=== PATIENT | female | born 1940 | race American Indian/Alaskan Native ===

== ENCOUNTER 2016-05-25 20:16 | Emergency (ER) | payer MEDICARE, MEDICAID ==
[2016-05-25] MEDS ORDERED: Aspirin 81 MG Tab.Chew PO ONE (20:19)
--- NOTE | 2016-05-25 20:25 | EDM.PDOC ---
ED HISTORY OF PRESENT ILLNESS - General Stated Complaint: SOB CHEST PAIN Time Seen by Provider: 05/25/16 20:18 Source of Information: Reports: Patient History Limitations: Reports: No limitations - History of Present Illness INITIAL COMMENTS - FREE TEXT/NARRATIVE: This 75 yo female patient reports to the ED with left sided chest pain. The patient reports her pain started about 1730 or 1800 this evening. The patient reports she took an 81 mg aspirin with no relief. The patient states that she is not too sure if it was something she ate or heart related. The patient has CHF, a-fib, COPD and chronic knee pain. 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 ) - Related Data Allergies/ADRs: Allergies Allergy/AdvReac Type Severity Reaction Status Date / Time red dye Allergy Mild Stomach Verified 05/25/16 20:31 Upset enalapril maleate Allergy Unknown Cannot Verified 05/25/16 20:31 [From Vasotec] Remember enalaprilat dihydrate Allergy Unknown Cannot Verified 05/25/16 20:31 [From Vasotec] Remember Penicillins Allergy Unknown Cannot Verified 05/25/16 20:31 Remember amlodipine Allergy Cannot Verified 05/25/16 20:31 Remember amoxicillin trihydrate Allergy Cannot Verified 05/25/16 20:31 [From Augmentin] Remember cephalexin [Cephalexin] Allergy Cannot Verified 05/25/16 20:31 Remember erythromycin base Allergy Cannot Verified 05/25/16 20:31 [Erythromycin Base] Remember influenza virus vaccine, Allergy Cannot Verified 05/25/16 20:31 specific Remember [Influenza Virus Vacc,Specific] losartan [Losartan] Allergy Cannot Verified 05/25/16 20:31 Remember potassium clavulanate Allergy Cannot Verified 05/25/16 20:31 [From Augmentin] Remember Home Meds: Home Meds Calcium Citrate - Vit D Caplet 1 tab PO DAILY 02/07/14 [History] Carboxymethylcellulose 2 drop EYEBOTH QID PRN 03/28/13 [History] Omeprazole 1 cap PO DAILY 03/28/13 [History] Ferrous Gluconate 324 mg PO BID 07/08/13 [History] PARoxetine [Paxil] 10 mg PO DAILY 07/08/13 [History] oxyCODONE HCl/Acetaminophen [Percocet 5-325 mg Tablet] 1 tab PO TID 07/08/13 [ History] Furosemide [Lasix] 40 mg PO DAILY #30 tablet 07/16/13 [Rx] Magnesium Oxide 400 mg PO DAILY 09/10/14 [History] Metolazone 2.5 mg PO ASDIRECTED 09/10/14 [History] Aspirin [Low Dose Aspirin EC] 81 mg PO DAILY 11/04/14 [History] Potassium Chloride 40 meq PO TID 11/04/14 [History] Past Medical History Other HEENT History: wears glasses Other Musculoskeletal History: arthritis in lower back, knees, ankles and heels , left shoulder Other Psychiatric History: help balance hormones after hysterectomy Other Dermatologic History: pediculosis capitis - Past Surgical History Other GI Surgeries/Procedures: 1984 cholecystectomy Other Female Surgeries/Procedures: 2012 hysterectomy Other Oncologic Surgeries/Procedures: hysterectomy Social & Family History - Tobacco Use Smoking Status *Q: Never Smoker Second Hand Smoke Exposure: Yes - Alcohol Use Days Per Week of Alcohol Use: 0 - Recreational Drug Use Recreational Drug Use: No - Living Situation & Occupation Living situation: Reports: extended care facility Occupation: disabled ED ROS GENERAL - Review of Systems Review Of Systems: ROS reveals no pertinent complaints other than HPI. ED EXAM, GENERAL - Physical Exam Exam: See Below Exam Limited By: No limitations General Appearance: alert, WD/WN, anxious, mild distress Eye Exam: bilateral eye: EOMI, normal inspection, PERRL Ears: normal external exam, normal canal, hearing grossly normal, normal TMs Nose: normal inspection, normal mucosa, no blood Throat/Mouth: Normal inspection, Normal lips, Normal teeth, Normal gums, Normal oropharynx, Normal voice, No airway compromise Head: atraumatic, normocephalic Neck: normal inspection, supple, non-tender, full range of motion Respiratory/Chest: no respiratory distress, lungs clear, normal breath sounds, no accessory muscle use, chest non-tender Cardiovascular: normal peripheral pulses, no edema, no gallop, no JVD, no murmur , no rub, irregularly irregular GI/Abdominal: normal bowel sounds, soft, non tender, no organomegaly, no distention, no abnormal bruit, no mass (Female) Exam: Deferred Rectal (Female) Exam: Deferred Back Exam: normal inspection, full range of motion, NT Extremities: normal inspection, normal range of motion, non-tender, normal capillary refill, no pedal edema Neurological: alert, oriented, CN II-XII intact, normal cognition, normal gait, normal reflexes, no motor/sensory deficits Psychiatric: normal affect, normal mood Skin Exam: Warm, Dry, Intact, Normal color, No rash Lymphatic: no adenopathy Course - Vital Signs Last Recorded V/S: Last Vital Signs Temp 36.4 C 05/25/16 20:26 Pulse 74 05/25/16 20:26 Resp 20 05/25/16 20:26 BP 152/81 H 05/25/16 20:26 Pulse Ox 99 05/25/16 20:26 - Orders/Labs/Meds Orders: Active Orders 24 hr Category Date Time Status EKG Documentation Completion [RC] URGENT Care 05/25/16 20:18 Active Labs: Laboratory Tests 05/25/16 05/25/16 Range/Units 20:25 20:25 WBC 5.7 (5.0-10.0) 10^3/uL RBC 4.92 (4.2-5.4) 10^6/uL Hgb 14.2 (12.0-16.0) g/dL Hct 44.7 (37.0-47.0) % MCV 90.9 (80-100) fL MCH 28.9 (27.0-34.0) pg MCHC 31.8 L (33.0-35.0) g/dL Plt Count 147 L (150-450) 10^3/uL Neut % (Auto) 58.6 (42.2-75.2) % Lymph % (Auto) 23.7 (20.5-50.1) % [place] % (Auto) 12.7 H (2-8) % Eos % (Auto) 4.6 H (1.0-3.0) % Baso % (Auto) 0.4 (0.0-1.0) % Sodium 138 (135-145) mmol/L Potassium 3.9 (3.6-5.0) mmol/L Chloride 98 L (101-111) mmol/L Carbon Dioxide 33.0 H (21.0-31.0) mmol/L Anion Gap 10.9 BUN 18 (7-18) mg/dL Creatinine 0.8 (0.6-1.3) mg/dL Est Cr Clr Drug Dosing 51.81 mL/min Estimated GFR (MDRD) > 60 BUN/Creatinine Ratio 22.50 Glucose 90 (74-105) mg/dL Calcium 9.0 (8.4-10.2) mg/dl Total Bilirubin 0.4 (0.2-1.0) mg/dL AST 21 (10-42) IU/L ALT 16 (10-60) IU/L Alkaline Phosphatase 82 (42-121) IU/L Troponin I < 0.02 (0.00-0.02) ng/ml B-Natriuretic Peptide 127 H (0-100) pg/ml Total Protein 7.5 (6.7-8.2) g/dl Albumin 3.5 (3.2-5.5) g/dl Globulin 4.0 Albumin/Globulin Ratio 0.88 Meds: Medications Discontinued Medications Generic Name Dose Route Start Last Admin Trade Name Freq PRN Reason Stop Dose Admin Aspirin 324 mg 05/25/16 20:19 05/25/16 20:29 Aspirin PO 05/25/16 20:20 324 mg ONETIME ONE Administration - Re-Assessments/Exams Free Text/Narrative Re-Assessment/Exam: 05/25/16 20:44 The patient reports she was feeling better after a short time in the ED. The patient reports she burped which relieved her pain. Departure - Departure Time of Disposition: 21:17 Disposition: Home, Self-Care 01 Condition: fair Clinical Impression: Non-cardiac chest pain Instructions: Nonspecific Chest Pain, [id number] Care Plan Goals: The patient and family were advised of the examination, lab, EKG and x-ray results during the visit. The patient was given Aspirin while in the ED. If the patient has any additional symptoms or concerns, the patient should follow-up with her primary care facility or return to the emergency department. - My Orders Last 24 Hours: My Active Orders 05/25/16 20:18 EKG Documentation Completion [RC] URGENT - Assessment/Plan Last 24 Hours: My Active Orders 05/25/16 20:18 EKG Documentation Completion [RC] URGENT
[2016-05-25 20:29] VITALS: BP 152/81
[2016-05-25 20:51] LABS: CHLORIDE,CL 98 mmol/L (101-111); SODIUM,NA 138 mmol/L (135-145)
--- NOTE | 2016-05-26 11:49 | EKG ---
05/25/2016 - JOAQUIM BOTELLO - TIME OF EK hours. I reviewed the EKG and agree with the machine's reading. [facility] /[id number]
== END 2016-05-25 21:34 | disposition home or self-care (01) ==
LOC: DL.ED 20:16
DX: R07.89 Other chest pain (principal); Z79.899 Other long term (current) drug therapy; Z90.710 Acquired absence of both cervix and uterus; Z90.49 Acquired absence of other specified parts of digestive tract; Z88.0 Allergy status to penicillin; Z88.1 Allergy status to other antibiotic agents; Z88.8 Allergy status to other drugs, medicaments and biological substances; Z91.041 Radiographic dye allergy status
CPT/HCPCS: 36415; 71010; 80053; 83880; 84484; 85025; 93005; 93010; 99285; A9270; 99283

== ENCOUNTER 2016-10-12 19:01 | Emergency (ER) | payer MEDICARE, MEDICAID ==
[2016-10-12 19:25] VITALS: BP 131/70
--- NOTE | 2016-10-12 19:25 | EDM.PDOC ---
ED HPI GENERAL MEDICAL PROBLEM - General Chief Complaint: Respiratory Problem Stated Complaint: NOSE, TROUBLE BREATHING [id number] Time Seen by Provider: 10/12/16 19:23 Source of Information: Reports: Patient History Limitations: Reports: No Limitations - History of Present Illness INITIAL COMMENTS - FREE TEXT/NARRATIVE: 3 days h/o sob and nose bleed on off. states use home O2 and right nostril is blocked and bleed on off. none now. denies CP. Knee Pain Score (Numeric/FACES): 5 - Related Data Allergies Allergy/AdvReac Type Severity Reaction Status Date / Time red dye Allergy Mild Stomach Verified 10/12/16 19:16 Upset enalapril maleate Allergy Unknown Cannot Verified 10/12/16 19:16 [From Vasotec] Remember enalaprilat dihydrate Allergy Unknown Cannot Verified 10/12/16 19:16 [From Vasotec] Remember Penicillins Allergy Unknown Cannot Verified 10/12/16 19:16 Remember amlodipine Allergy Cannot Verified 10/12/16 19:16 Remember amoxicillin trihydrate Allergy Cannot Verified 10/12/16 19:16 [From Augmentin] Remember cephalexin [Cephalexin] Allergy Cannot Verified 10/12/16 19:16 Remember erythromycin base Allergy Cannot Verified 10/12/16 19:16 [Erythromycin Base] Remember influenza virus vaccine, Allergy Cannot Verified 10/12/16 19:16 specific Remember [Influenza Virus Vacc,Specific] losartan [Losartan] Allergy Nausea Verified 10/12/16 19:16 potassium clavulanate Allergy Cannot Verified 10/12/16 19:16 [From Augmentin] Remember Home Meds: Home Meds Calcium Citrate - Vit D Caplet 1 tab PO DAILY 03/28/13 [History] Carboxymethylcellulose 2 drop EYEBOTH QID PRN 03/28/13 [History] Omeprazole 1 cap PO DAILY 03/28/13 [History] Ferrous Gluconate 324 mg PO BID 07/08/13 [History] PARoxetine [Paxil] 10 mg PO DAILY 07/08/13 [History] oxyCODONE HCl/Acetaminophen [Percocet 5-325 mg Tablet] 1 tab PO TID 07/08/13 [ History] Furosemide [Lasix] 40 mg PO DAILY #30 tablet 07/16/13 [Rx] Magnesium Oxide 400 mg PO DAILY 09/10/14 [History] Metolazone 2.5 mg PO ASDIRECTED 09/10/14 [History] Aspirin [Low Dose Aspirin EC] 81 mg PO DAILY 11/04/14 [History] Potassium Chloride 40 meq PO TID 11/04/14 [History] Past Medical History Other HEENT History: wears glasses Cardiovascular History: Reports: Heart Failure, Hypertension Other Musculoskeletal History: arthritis in lower back, knees, ankles and heels , left shoulder Other Psychiatric History: help balance hormones after hysterectomy Other Dermatologic History: pediculosis capitis - Past Surgical History Other GI Surgeries/Procedures: 1984 cholecystectomy Other Female Surgeries/Procedures: 2012 hysterectomy Other Oncologic Surgeries/Procedures: hysterectomy Social & Family History - Tobacco Use Smoking Status *Q: Never Smoker Second Hand Smoke Exposure: Yes - Caffeine Use Caffeine Use: Reports: Coffee, Soda, Tea - Alcohol Use Days Per Week of Alcohol Use: 0 - Recreational Drug Use Recreational Drug Use: No - Living Situation & Occupation Living situation: Reports: Extended Care Facility Occupation: Disabled ED ROS GENERAL - Review of Systems Review Of Systems: ROS reveals no pertinent complaints other than HPI. ED EXAM, GENERAL - Physical Exam Exam: See Below Exam Limited By: No Limitations General Appearance: Alert, WD/WN, Anxious, Other (disraught) Ears: Hearing Grossly Normal Nose: No Blood, Other (right turbiate swollen) Throat/Mouth: Normal Voice, No Airway Compromise Head: Atraumatic Neck: Non-Tender, Full Range of Motion Respiratory/Chest: No Respiratory Distress, No Accessory Muscle Use, Decreased Breath Sounds, Rhonchi, Wheezing Cardiovascular: Regular Rate, Rhythm GI/Abdominal: Soft, Non-Tender Neurological: Alert, Oriented, Normal Cognition, No Motor/Sensory Deficits Psychiatric: Flat Affect Skin Exam: Warm, Dry, Normal Color Lymphatic: No Adenopathy Course - Vital Signs Last Recorded V/S: Last Vital Signs Temp 36.5 C 10/12/16 19:10 Pulse 74 10/12/16 19:10 Resp 22 H 10/12/16 19:10 BP 131/70 10/12/16 19:10 Pulse Ox 94 L 10/12/16 19:10 - Orders/Labs/Meds Labs: Laboratory Tests 10/12/16 10/12/16 10/12/16 Range/Units 19:30 19:30 19:30 WBC 6.8 (5.0-10.0) 10^3/uL RBC 4.89 (4.2-5.4) 10^6/uL Hgb 13.8 (12.0-16.0) g/dL Hct 44.2 (37.0-47.0) % MCV 90.4 (80-100) fL MCH 28.2 (27.0-34.0) pg MCHC 31.2 L (33.0-35.0) g/dL Plt Count 149 L (150-450) 10^3/uL Neut % (Auto) 67.1 (42.2-75.2) % Lymph % (Auto) 20.6 (20.5-50.1) % [place] % (Auto) 9.4 H (2-8) % Eos % (Auto) 2.6 (1.0-3.0) % Baso % (Auto) 0.3 (0.0-1.0) % PT 9.6 (9.0-12.0) SEC INR 1.0 (0.9-1.2) APTT 25.3 (22.0-34.0) SEC Sodium 142 (135-145) mmol/L Potassium 3.4 L (3.6-5.0) mmol/L Chloride 100 L (101-111) mmol/L Carbon Dioxide 33.0 H (21.0-31.0) mmol/L Anion Gap 12.4 BUN 17 (7-18) mg/dL Creatinine 0.9 (0.6-1.3) mg/dL Est Cr Clr Drug Dosing 47.36 mL/min Estimated GFR (MDRD) > 60 BUN/Creatinine Ratio 18.88 Glucose 104 (74-105) mg/dL Calcium 8.7 (8.4-10.2) mg/dl Total Bilirubin 0.5 (0.2-1.0) mg/dL AST 18 (10-42) IU/L ALT 13 (10-60) IU/L Alkaline Phosphatase 67 (42-121) IU/L Troponin I < 0.02 (0.00-0.02) ng/ml B-Natriuretic Peptide 111 H (0-100) pg/ml Total Protein 7.6 (6.7-8.2) g/dl Albumin 3.3 (3.2-5.5) g/dl Globulin 4.3 Albumin/Globulin Ratio 0.77 Meds: Medications Discontinued Medications Generic Name Dose Route Start Last Admin Trade Name Alana PRN Reason Stop Dose Admin Levofloxacin 250 mg 10/12/16 21:10 Levaquin PO 10/12/16 21:11 ONETIME ONE Prednisone 10 mg 10/12/16 21:10 Prednisone PO 10/12/16 21:11 ONETIME ONE - Re-Assessments/Exams Free Text/Narrative Re-Assessment/Exam: 10/12/16 21:12 results discussed with pt who is feeling ok presently. Departure - Departure Time of Disposition: 21:12 Disposition: Home, Self-Care 01 Condition: Good Clinical Impression: Sinusitis nasal Qualifiers: Sinusitis location: pansinusitis Chronicity: acute Recurrence: not specified as recurrent Qualified Code(s): J01.40 - Acute pansinusitis, unspecified - Discharge Information Instructions: Sinusitis, Adult, Tygl-ad-Tpts Forms: ED Department Discharge Additional Instructions: 1) rest 2) follow up with clinic or recheck if there is any change or concern rx given; medrol dospak levaquine 250mg daily x 5 days
[2016-10-12 19:56] LABS: CHLORIDE,CL 100 mmol/L (101-111); SODIUM,NA 142 mmol/L (135-145)
[2016-10-12] MEDS ORDERED: predniSONE 10 MG Tab PO ONE (21:10)
[2016-10-12] MEDS ORDERED: Levofloxacin 250 MG Tab PO ONE (21:10)
== END 2016-10-12 21:26 | disposition home or self-care (01) ==
LOC: DL.ED 19:01
DX: J01.40 Acute pansinusitis, unspecified (principal); I11.0 Hypertensive heart disease with heart failure; I50.9 Heart failure, unspecified; M19.90 Unspecified osteoarthritis, unspecified site; Z90.710 Acquired absence of both cervix and uterus; Z90.49 Acquired absence of other specified parts of digestive tract; Z79.82 Long term (current) use of aspirin; Z79.899 Other long term (current) drug therapy; Z88.0 Allergy status to penicillin; Z88.1 Allergy status to other antibiotic agents; Z88.8 Allergy status to other drugs, medicaments and biological substances; Z91.040 Latex allergy status
CPT/HCPCS: 36415; 71010; 80053; 83880; 84484; 85025; 85610; 85730; 99285; A9270; 99284

== ENCOUNTER 2017-02-11 13:31 | Emergency (ER) | payer MEDICARE, MEDICAID ==
[2017-02-11 13:46] VITALS: BP 139/62
[2017-02-11] MEDS ORDERED: Tetracaine HCl/PF 0.5% 4 ML Bottle EYELF ONE (13:47)
--- NOTE | 2017-02-11 13:47 | EDM.PDOC ---
ED HPI GENERAL MEDICAL PROBLEM - General Chief Complaint: Eye Problems Stated Complaint: [id number] RED EYE SCRATCHY Time Seen by Provider: 02/11/17 13:46 Source of Information: Reports: Patient, RN, RN Notes Reviewed History Limitations: Reports: No Limitations - History of Present Illness INITIAL COMMENTS - FREE TEXT/NARRATIVE: Arrives from home by POV with c/o that she scratched her left eye last night while making household preparations for [place]. She believes she either scratched the eye with a newspaper, or tinsel from the [place] tree. Denies visual changes or discharge. 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 Left Eye Pain Score (Numeric/FACES): 1 - Related Data Allergies Allergy/AdvReac Type Severity Reaction Status Date / Time red dye Allergy Mild Stomach Verified 02/11/17 13:42 Upset enalapril maleate Allergy Unknown Cannot Verified 02/11/17 13:42 [From Vasotec] Remember enalaprilat dihydrate Allergy Unknown Cannot Verified 02/11/17 13:42 [From Vasotec] Remember Penicillins Allergy Unknown Cannot Verified 02/11/17 13:42 Remember amlodipine Allergy Cannot Verified 02/11/17 13:42 Remember amoxicillin trihydrate Allergy Cannot Verified 02/11/17 13:42 [From Augmentin] Remember cephalexin [Cephalexin] Allergy Cannot Verified 02/11/17 13:42 Remember erythromycin base Allergy Cannot Verified 02/11/17 13:42 [Erythromycin Base] Remember influenza virus vaccine, Allergy Cannot Verified 02/11/17 13:42 specific Remember [Influenza Virus Vacc,Specific] losartan [Losartan] Allergy Nausea Verified 02/11/17 13:42 potassium clavulanate Allergy Cannot Verified 02/11/17 13:42 [From Augmentin] Remember Home Meds: Home Meds Calcium Citrate - Vit D Caplet 1 tab PO DAILY 03/28/13 [History] Carboxymethylcellulose 2 drop EYEBOTH QID PRN 03/28/13 [History] Omeprazole 1 cap PO DAILY 03/28/13 [History] Ferrous Gluconate 324 mg PO BID 07/08/13 [History] PARoxetine [Paxil] 10 mg PO DAILY 07/08/13 [History] oxyCODONE HCl/Acetaminophen [Percocet 5-325 mg Tablet] 1 tab PO TID 07/08/13 [ History] Furosemide [Lasix] 40 mg PO DAILY #30 tablet 07/16/13 [Rx] Magnesium Oxide 400 mg PO DAILY 09/10/14 [History] Metolazone 2.5 mg PO ASDIRECTED 09/10/14 [History] Aspirin [Low Dose Aspirin EC] 81 mg PO DAILY 11/04/14 [History] Potassium Chloride 40 meq PO TID 11/04/14 [History] Past Medical History Other HEENT History: wears glasses Cardiovascular History: Reports: Heart Failure, Hypertension Respiratory History: Reports: Other (See Below) Other Respiratory History: oxygen dependent Gastrointestinal History: Reports: GERD Genitourinary History: Reports: Urinary Incontinence 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: 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 Uterine Bleeding Musculoskeletal History: Reports: Arthritis, Back Pain, Chronic, Other (See Below) Other Musculoskeletal History: arthritis in lower back, knees, ankles and heels , left shoulder Other Psychiatric History: help balance hormones after hysterectomy Hematologic History: Reports: Anemia Oncologic (Cancer) History: Reports: Uterine Dermatologic History: Reports: Other (See Below) Other Dermatologic History: pediculosis capitis - Infectious Disease History Infectious Disease History: Reports: Chicken Pox, Mumps - Past Surgical History Other GI Surgeries/Procedures: 1984 cholecystectomy Other Female Surgeries/Procedures: 2012 hysterectomy Other Oncologic Surgeries/Procedures: hysterectomy Social & Family History - Family History Family Medical History: Noncontributory - Tobacco Use Smoking Status *Q: Never Smoker Second Hand Smoke Exposure: Yes - Caffeine Use Caffeine Use: Reports: Coffee, Soda, Tea - Alcohol Use Days Per Week of Alcohol Use: 0 - Recreational Drug Use Recreational Drug Use: No - Living Situation & Occupation Living situation: Reports: Extended Care Facility Occupation: Disabled ED ROS GENERAL - Review of Systems Review Of Systems: ROS reveals no pertinent complaints other than HPI. ED EXAM GENERAL W FULL EYE - Physical Exam Exam: See Below Exam Limited By: No Limitations General Appearance: Alert, No Apparent Distress, Obese Eye Exam: Right Eye: Normal Inspection, Left Eye: Corneal Abrasion, Bilateral Eye: EOMI, PERRL Eyelids: Left: Lid Everted for Exam, Bilateral: Normal Appearance Conjunctiva & Sclera: Right: Normal Appearance, Left: Injected, Subconjuctival Hemorrhage Cornea Exam: Left: Corneal Abrasion, Examined with Flourescein Extraocular Movements: Bilateral: Intact Pupils: Normal Accommodation Pupillary Size: Bilateral: 3 mm Pupillary Reaction: Bilateral: Brisk Head: Atraumatic, Normocephalic Respiratory/Chest: No Respiratory Distress Neurological: Alert, Oriented, CN II-XII Intact, No Motor/Sensory Deficits Psychiatric: Normal Affect, Normal Mood Skin Exam: Warm, Dry, Intact, Normal Color, No Rash ED EYE w/ Add Procedure - Eye Procedure Alcaine Drops Administered: Yes Eye FB Removal: no Removal w/ Cotton Swab, no Removal w/ Needle, no Other Antibiotic Oinment/Drps Admin: Left Eye Progress: No FB seen. Course - Vital Signs Last Recorded V/S: Last Vital Signs Temp 36.3 C 02/11/17 13:42 Pulse 62 02/11/17 13:42 Resp 20 02/11/17 13:42 BP 139/62 02/11/17 13:42 Pulse Ox 98 02/11/17 13:42 - Orders/Labs/Meds Meds: Medications Discontinued Medications Generic Name Dose Route Start Last Admin Trade Name Freq PRN Reason Stop Dose Admin Fluorescein Sodium 1 mg 02/11/17 13:52 02/11/17 13:56 Ful-Marilu EYELF 02/11/17 13:53 1 mg ONETIME ONE Administration Gentamicin Sulfate 1 gm 02/11/17 13:52 02/11/17 13:56 Gentak 0.3% Ophth Oint EYELF 02/11/17 13:53 1 gm ONETIME ONE Administration Tetracaine HCl 1 ml 02/11/17 13:47 02/11/17 13:56 Tetracaine 0.5% Steri-Unit Dana EYELF 02/11/17 13:48 1 drop ONETIME ONE Administration Departure - Departure Time of Disposition: 14:12 Disposition: Home, Self-Care 01 Condition: Good Clinical Impression: Subconjunctival hemorrhage of left eye Corneal abrasion Qualifiers: Encounter type: initial encounter Laterality: left Qualified Code(s): S05.02XA - Injury of conjunctiva and corneal abrasion without foreign body, left eye, initial encounter - Discharge Information Instructions: Corneal Abrasion, [id number], Subconjunctival Hemorrhage Forms: ED Department Discharge Additional Instructions: Gentamicin Ophthalmic Ointment: Place a small amount of ointment in the left eye four times a day for five days. Wear pressure patch on left eye as needed for comfort. Follow up with your eye clinic on Sunday, .
[2017-02-11] MEDS ORDERED: Fluorescein 1 MG Ophth Strip EYELF ONE (13:52)
== END 2017-02-11 14:20 | disposition home or self-care (01) ==
LOC: DL.ED 13:31
DX: S05.02XA Injury of conjunctiva and corneal abrasion without foreign body, left eye, initial encounter (principal); H11.32 Conjunctival hemorrhage, left eye; I11.0 Hypertensive heart disease with heart failure; I50.9 Heart failure, unspecified; Z91.041 Radiographic dye allergy status; Z88.8 Allergy status to other drugs, medicaments and biological substances; Z88.0 Allergy status to penicillin; Z79.899 Other long term (current) drug therapy; X58.XXXA Exposure to other specified factors, initial encounter
CPT/HCPCS: 99283; A9270

== ENCOUNTER 2017-05-31 11:45 | Emergency (ER) | payer MEDICARE, MEDICAID ==
[2017-05-31 12:02] VITALS: BP 121/97
[2017-05-31] MEDS ORDERED: Oxymetazoline 0.05% Nasal Spray 15 ML Bottle NAS ONE (12:02)
[2017-05-31] MEDS ORDERED: Lidocaine 1% with EPINEPHrine 1:100,000 30 ML MDV INJECT ONE (12:02)
--- NOTE | 2017-05-31 12:17 | EDM.PDOC ---
ED HPI GENERAL MEDICAL PROBLEM - General Chief Complaint: ENT Problem Stated Complaint: IN BY AMBULANCE Time Seen by Provider: 05/31/17 12:11 Source of Information: Reports: Patient, EMS, RN History Limitations: Reports: No Limitations - History of Present Illness INITIAL COMMENTS - FREE TEXT/NARRATIVE: Eliza presents to ED by EMS, report of right nostril bleeding since 2100 yesterday. Patient felt constipated and "it was hard to go, but I went". Afterward, patient felt dripping from her nose. Eliza states she had large clots from her nose and had to change the nasal packing twenty times. Patient spent the night sleeping upright in her arm-chair. This is the first time she has had a nose bleed "in years". Patient takes 81mg aspirin daily, no other anti-coagulants. Patient is on 3L nasal cannula oxygen therapy at home. Onset: Sudden Onset Date: 05/30/17 Onset Time: 21:00 Duration: Hour(s):, Constant Location: Reports: Face Severity: Moderate Improves with: Reports: Other (Nasal packing) Worsens with: Reports: None Associated Symptoms: Reports: No Other Symptoms. 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 Hip Pain Score (Numeric/FACES): 7 - Related Data Allergies Allergy/AdvReac Type Severity Reaction Status Date / Time red dye Allergy Mild Stomach Verified 05/31/17 12:04 Upset enalapril maleate Allergy Unknown Cannot Verified 05/31/17 12:04 [From Vasotec] Remember enalaprilat dihydrate Allergy Unknown Cannot Verified 05/31/17 12:04 [From Vasotec] Remember Penicillins Allergy Unknown Cannot Verified 05/31/17 12:04 Remember amlodipine Allergy Cannot Verified 05/31/17 12:04 Remember amoxicillin trihydrate Allergy Cannot Verified 05/31/17 12:04 [From Augmentin] Remember cephalexin [Cephalexin] Allergy Cannot Verified 05/31/17 12:04 Remember erythromycin base Allergy Cannot Verified 05/31/17 12:04 [Erythromycin Base] Remember influenza virus vaccine, Allergy Cannot Verified 05/31/17 12:04 specific Remember [Influenza Virus Vacc,Specific] losartan [Losartan] Allergy Nausea Verified 05/31/17 12:04 potassium clavulanate Allergy Cannot Verified 02/11/17 13:42 [From Augmentin] Remember Home Meds: Home Meds Calcium Citrate - Vit D Caplet 1 tab PO DAILY 03/28/13 [History] Carboxymethylcellulose 2 drop EYEBOTH QID PRN 03/28/13 [History] Omeprazole 1 cap PO DAILY 03/28/13 [History] Ferrous Gluconate 324 mg PO BID 07/08/13 [History] PARoxetine [Paxil] 10 mg PO DAILY 07/08/13 [History] oxyCODONE HCl/Acetaminophen [Percocet 5-325 mg Tablet] 1 tab PO TID 07/08/13 [ History] Furosemide [Lasix] 40 mg PO DAILY #30 tablet 07/16/13 [Rx] Magnesium Oxide 400 mg PO DAILY 09/10/14 [History] Metolazone 2.5 mg PO ASDIRECTED 09/10/14 [History] Aspirin [Low Dose Aspirin EC] 81 mg PO DAILY 11/04/14 [History] Potassium Chloride 40 meq PO TID 11/04/14 [History] Acetaminophen [Tylenol] 325 mg PO Q4H PRN 05/31/17 [History] Metoprolol Succinate 50 mg PO DAILY 05/31/17 [History] Nitroglycerin [Nitrostat] 0.4 mg SL ASDIRECTED PRN 05/31/17 [History] Past Medical History HEENT History: Reports: Other (See Below) Other HEENT History: wears glasses Cardiovascular History: Reports: Heart Failure, Hypertension Respiratory History: Reports: Other (See Below) Other Respiratory History: oxygen dependent Gastrointestinal History: Reports: GERD Genitourinary History: Reports: Urinary Incontinence 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: 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 Uterine Bleeding Musculoskeletal History: Reports: Arthritis, Back Pain, Chronic, Other (See Below) Other Musculoskeletal History: arthritis in lower back, knees, ankles and heels , left shoulder Other Psychiatric History: help balance hormones after hysterectomy Hematologic History: Reports: Anemia Oncologic (Cancer) History: Reports: Uterine Dermatologic History: Reports: Other (See Below) Other Dermatologic History: pediculosis capitis - Infectious Disease History Infectious Disease History: Reports: Chicken Pox, Mumps - Past Surgical History Other GI Surgeries/Procedures: 1984 cholecystectomy Other Female Surgeries/Procedures: 2012 hysterectomy Other Oncologic Surgeries/Procedures: hysterectomy Social & Family History - Family History Family Medical History: Noncontributory - Tobacco Use Smoking Status *Q: Never Smoker Second Hand Smoke Exposure: Yes - Caffeine Use Caffeine Use: Reports: Coffee, Soda, Tea - Alcohol Use Days Per Week of Alcohol Use: 0 - Recreational Drug Use Recreational Drug Use: No - Living Situation & Occupation Living situation: Reports: Extended Care Facility Occupation: Disabled ED ROS ENT - Review of Systems Review Of Systems: See Below Constitutional: Reports: No Symptoms HEENT: Reports: Nosebleed. Denies: Sinus Problem, Vertigo Respiratory: Reports: No Symptoms Cardiovascular: Reports: Lightheadedness Endocrine: Reports: No Symptoms GI/Abdominal: Reports: No Symptoms : Reports: No Symptoms Musculoskeletal: Reports: No Symptoms Skin: Reports: No Symptoms Neurological: Reports: No Symptoms ED EXAM, ENT - Physical Exam Exam: See Below Exam Limited By: No Limitations General Appearance: Alert, No Apparent Distress Eye Exam: Bilateral Eye: Normal Inspection, PERRL Ears: Normal Canal Nose: Active Bleeding (No excoriations or open sores in right nostril, oozing of bright red blood. Clots on nasal packing ), Dried Blood (Dried blood in left nare, no open sores or excoriations ). No: Nasal Deformity, Septal Deformity, Septal Hematoma, Septal Perforation Mouth/Throat: Normal Inspection, Normal Oropharynx. No: Dry Mucous Membrane Head: Atraumatic, Normocephalic Neck: Normal Inspection, Supple Respiratory/Chest: No Respiratory Distress, Lungs Clear, Normal Breath Sounds. No: Rhonchi Cardiovascular: Normal Peripheral Pulses, Regular Rate, Rhythm GI/Abdominal: Normal Bowel Sounds, Soft, Non-Tender Extremities: Normal Capillary Refill Neurological: Alert, Oriented, CN II-XII Intact, Normal Cognition Psychiatric: Normal Affect, Normal Mood Skin: Warm, Dry, Normal Color, No Rash ED ENT PROCEDURES - Epistaxis Procedure Indication: Epistaxis Recent anticoagulants/antiplatlets: No Uncontrolled HTN: No Recent septal/nasal surgery: No Site of bleeding: Right Nare, Anterior Clearing of clots: Patient Blew Nose Anterior Packing: Plain Gauze Strip (Upon arrival ), Inflatable Nasal Tampon Local anesthesia - Lidocaine (Xylocaine): 1% with EPI (Epi with Afrin spray, compression held and patient leaning forward ) Course - Vital Signs Last Recorded V/S: Last Vital Signs Temp 36.4 C 05/31/17 11:52 Pulse 78 05/31/17 11:52 Resp 16 05/31/17 11:52 BP 121/97 H 05/31/17 11:52 Pulse Ox 99 05/31/17 11:52 - Orders/Labs/Meds Orders: Active Orders 24 hr Category Date Time Status Ready for Discharge [RC] PER UNIT ROUTINE Care 05/31/17 14:03 Ordered Labs: Laboratory Tests 05/31/17 Range/Units 12:12 WBC 6.0 (5.0-10.0) 10^3/uL RBC 4.74 (4.2-5.4) 10^6/uL Hgb 13.5 (12.0-16.0) g/dL Hct 42.9 (37.0-47.0) % MCV 90.5 (80-100) fL MCH 28.5 (27.0-34.0) pg MCHC 31.5 L (33.0-35.0) g/dL Plt Count 136 L (150-450) 10^3/uL Meds: Medications Discontinued Medications Generic Name Dose Route Start Last Admin Trade Name Alana PRN Reason Stop Dose Admin Lidocaine/Epinephrine 30 ml 05/31/17 12:02 05/31/17 12:35 Xylocaine 1% With Epinephrine 1:100,000 INJECT 05/31/17 12:03 30 ml ONETIME ONE Administration Oxymetazoline HCl 1 ml 05/31/17 12:02 05/31/17 12:35 Afrin Original 0.05% Nasal [place] JESICA 05/31/17 12:03 1 dose ONETIME ONE Administration - Re-Assessments/Exams Free Text/Narrative Re-Assessment/Exam: 05/31/17 13:26 Continued bleeding after Afrin/Epi spray and compression x2 Insertion of Inflatable tampon in right nostril. 05/31/17 13:58 Patient rinsed mouth, no bleeding in oropharynx. Departure - Departure Time of Disposition: 14:00 Disposition: Home, Self-Care 01 Condition: Good Clinical Impression: Epistaxis - Discharge Information Instructions: Nosebleed, Adult, [id number] Forms: ED Department Discharge Additional Instructions: See your Primary Care Provider TOMORROW to have the nasal tampon removed. Take Levaquin anti-biotic once a day for seven days.
== END 2017-05-31 14:38 | disposition home or self-care (01) ==
LOC: DL.ED 11:45
DX: R04.0 Epistaxis (principal); I10 Essential (primary) hypertension; Z91.041 Radiographic dye allergy status; Z88.8 Allergy status to other drugs, medicaments and biological substances; Z88.1 Allergy status to other antibiotic agents; Z88.0 Allergy status to penicillin; Z79.899 Other long term (current) drug therapy; Z77.22 Contact with and (suspected) exposure to environmental tobacco smoke (acute) (chronic)
CPT/HCPCS: 30901; 36415; 85027; 99283; 99284; A9270

== ENCOUNTER 2017-06-02 13:12 | Emergency (ER) | payer MEDICARE, MEDICAID ==
[2017-06-02 13:45] VITALS: BP 109/70
[2017-06-02] MEDS ORDERED: Oxymetazoline 0.05% Nasal Spray 15 ML Bottle NAS ONE (14:12)
--- NOTE | 2017-06-02 14:12 | EDM.PDOC ---
ED HPI GENERAL MEDICAL PROBLEM - General Chief Complaint: General Stated Complaint: [id number] Time Seen by Provider: 06/02/17 13:55 Source of Information: Reports: Patient History Limitations: Reports: No Limitations - History of Present Illness INITIAL COMMENTS - FREE TEXT/NARRATIVE: This 76 yo female patient reports to the ED to have a Rhino Rocket removed from her right nare. The patient reports she was seen in the ED 3 days ago with a bloody nose and had the packing placed into her nose. The patient went to the [facility] yesterday and finally saw the provider, but was advised that they would not take the rocket out due to them believing that there was additional bleeding in the area. Onset: Today Duration: Other Location: Reports: Face (right sided nose bleed) Quality: Reports: Other Severity: Moderate Improves with: Reports: None Worsens with: Reports: None Associated Symptoms: Reports: No Other Symptoms - Related Data Allergies Allergy/AdvReac Type Severity Reaction Status Date / Time red dye Allergy Mild Stomach Verified 06/02/17 13:40 Upset enalapril maleate Allergy Unknown Cannot Verified 06/02/17 13:40 [From Vasotec] Remember enalaprilat dihydrate Allergy Unknown Cannot Verified 06/02/17 13:40 [From Vasotec] Remember Penicillins Allergy Unknown Cannot Verified 06/02/17 13:40 Remember amlodipine Allergy Cannot Verified 06/02/17 13:40 Remember amoxicillin trihydrate Allergy Cannot Verified 06/02/17 13:40 [From Augmentin] Remember cephalexin [Cephalexin] Allergy Cannot Verified 06/02/17 13:40 Remember erythromycin base Allergy Cannot Verified 06/02/17 13:40 [Erythromycin Base] Remember influenza virus vaccine, Allergy Cannot Verified 06/02/17 13:40 specific Remember [Influenza Virus Vacc,Specific] losartan [Losartan] Allergy Nausea Verified 06/02/17 13:40 potassium clavulanate Allergy Cannot Verified 06/02/17 13:40 [From Augmentin] Remember Home Meds: Home Meds Calcium Citrate - Vit D Caplet 1 tab PO DAILY 03/28/13 [History] Carboxymethylcellulose 2 drop EYEBOTH QID PRN 03/28/13 [History] Omeprazole 1 cap PO DAILY 03/28/13 [History] Ferrous Gluconate 324 mg PO BID 05/20/14 [History] PARoxetine [Paxil] 10 mg PO DAILY 07/08/13 [History] oxyCODONE HCl/Acetaminophen [Percocet 5-325 mg Tablet] 1 tab PO TID 07/08/13 [ History] Furosemide [Lasix] 40 mg PO DAILY #30 tablet 07/16/13 [Rx] Magnesium Oxide 400 mg PO DAILY 09/10/14 [History] Metolazone 2.5 mg PO ASDIRECTED 09/10/14 [History] Aspirin [Low Dose Aspirin EC] 81 mg PO DAILY 11/04/14 [History] Potassium Chloride 40 meq PO TID 11/04/14 [History] Acetaminophen [Tylenol] 325 mg PO Q4H PRN 05/31/17 [History] Metoprolol Succinate 50 mg PO DAILY 05/31/17 [History] Nitroglycerin [Nitrostat] 0.4 mg SL ASDIRECTED PRN 05/31/17 [History] Past Medical History HEENT History: Reports: Other (See Below) Other HEENT History: wears glasses Cardiovascular History: Reports: Heart Failure, Hypertension Respiratory History: Reports: Other (See Below) Other Respiratory History: oxygen dependent Gastrointestinal History: Reports: GERD Genitourinary History: Reports: Urinary Incontinence 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: 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 Uterine Bleeding Musculoskeletal History: Reports: Arthritis, Back Pain, Chronic, Other (See Below) Other Musculoskeletal History: arthritis in lower back, knees, ankles and heels , left shoulder Neurological History: Reports: None Psychiatric History: Reports: None Other Psychiatric History: help balance hormones after hysterectomy Endocrine/Metabolic History: Reports: None Hematologic History: Reports: Anemia Immunologic History: Reports: None Oncologic (Cancer) History: Reports: Uterine Dermatologic History: Reports: Other (See Below) Other Dermatologic History: pediculosis capitis - Infectious Disease History Infectious Disease History: Reports: Chicken Pox, Mumps - Past Surgical History Other GI Surgeries/Procedures: 1984 cholecystectomy Other Female Surgeries/Procedures: 2012 hysterectomy Other Oncologic Surgeries/Procedures: hysterectomy Social & Family History - Family History Family Medical History: Noncontributory - Tobacco Use Smoking Status *Q: Never Smoker Second Hand Smoke Exposure: Yes - Caffeine Use Caffeine Use: Reports: Coffee, Soda, Tea - Alcohol Use Days Per Week of Alcohol Use: 0 - Recreational Drug Use Recreational Drug Use: No - Living Situation & Occupation Living situation: Reports: Extended Care Facility Occupation: Disabled ED ROS GENERAL - Review of Systems Review Of Systems: ROS reveals no pertinent complaints other than HPI. ED EXAM, GENERAL - Physical Exam Exam: See Below Exam Limited By: No Limitations General Appearance: Alert, WD/WN, Mild Distress, Obese Eye Exam: Bilateral Eye: EOMI, Normal Inspection, PERRL Ears: Normal External Exam, Normal Canal, Hearing Grossly Normal, Normal TMs Nose: Other (The patient had a Rhino Rocket in her. The device was removed after insection. ) Throat/Mouth: Normal Inspection, Normal Lips, Normal Teeth, Normal Gums, Normal Oropharynx, Normal Voice, No Airway Compromise Head: Atraumatic, Normocephalic Neck: Normal Inspection, Supple, Non-Tender, Full Range of Motion Respiratory/Chest: No Respiratory Distress, Lungs Clear, Normal Breath Sounds, No Accessory Muscle Use, Chest Non-Tender Cardiovascular: Normal Peripheral Pulses, Regular Rate, Rhythm, No Edema, No Gallop, No JVD, No Murmur, No Rub GI/Abdominal: Normal Bowel Sounds, Soft, Non-Tender, No Organomegaly, No Distention, No Abnormal Bruit, No Mass (Female) Exam: Deferred Rectal (Female) Exam: Deferred Back Exam: Normal Inspection, Full Range of Motion, NT Extremities: Normal Inspection, Normal Range of Motion, Non-Tender, Normal Capillary Refill, No Pedal Edema Neurological: Alert, Oriented, CN II-XII Intact, Normal Cognition, Normal Gait, Normal Reflexes, No Motor/Sensory Deficits Psychiatric: Normal Affect, Normal Mood Skin Exam: Warm, Dry, Intact, Normal Color, No Rash Lymphatic: No Adenopathy Course - Vital Signs Last Recorded V/S: Last Vital Signs Temp 36.7 C 06/02/17 13:42 Pulse 86 06/02/17 13:42 Resp 20 06/02/17 13:42 BP 109/70 06/02/17 13:42 Pulse Ox 92 L 06/02/17 13:42 - Orders/Labs/Meds Meds: Medications Discontinued Medications Generic Name Dose Route Start Last Admin Trade Name Freq PRN Reason Stop Dose Admin Oxymetazoline HCl 1 ml 06/02/17 14:12 06/02/17 14:26 Afrin Original 0.05% Nasal [place] JESICA 06/02/17 14:13 2 spray ONETIME ONE Administration - Re-Assessments/Exams Free Text/Narrative Re-Assessment/Exam: 06/02/17 14:15 After removal, the patient started to notice some additional bleeding. The patient reported more blood down the back of her nose and into her throat. Afrin was ordered. Free Text/Narrative Re-Assessment/Exam: 06/02/17 14:56 After the Afrin spray, the patient's nose bleed stopped. Departure - Departure Time of Disposition: 14:57 Disposition: Home, Self-Care 01 Condition: Fair Clinical Impression: Epistaxis, Encounter for removal of nasal packing - Discharge Information Instructions: Nosebleed, Adult, [id number] Forms: ED Department Discharge Care Plan Goals: The patient and family were advised of the examination results during the visit. The nasal packing was removed. The patient did have some bleeding after the removal of the nasal packing which was controlled with Afrin spray. If the patient has any additional symptoms or further concerns, the patient should follow-up with her primary care facility or return to the emergency department.
== END 2017-06-02 15:06 | disposition home or self-care (01) ==
LOC: DL.ED 13:12
DX: R04.0 Epistaxis (principal); I11.0 Hypertensive heart disease with heart failure; I50.9 Heart failure, unspecified; Z91.048 Other nonmedicinal substance allergy status; Z88.0 Allergy status to penicillin; Z88.8 Allergy status to other drugs, medicaments and biological substances; Z88.7 Allergy status to serum and vaccine; Z79.899 Other long term (current) drug therapy; Z79.82 Long term (current) use of aspirin
CPT/HCPCS: 99282; A9270

== ENCOUNTER 2017-08-21 18:46 | Emergency (ER) | payer MEDICARE, MEDICAID ==
[2017-08-21] MEDS ORDERED: Levofloxacin 500 MG Tab PO ONE ×2 (18:47→21:08)
[2017-08-21 18:56] VITALS: BP 137/77
[2017-08-21 20:11] LABS: ANION GAP 11.5; CHLORIDE,CL 94 mmol/L (101-111); SODIUM,NA 138 mmol/L (135-145)
--- NOTE | 2017-08-21 21:07 | EDM.PDOC ---
ED HPI GENERAL MEDICAL PROBLEM - General Chief Complaint: Respiratory Problem Stated Complaint: [id number] Time Seen by Provider: 08/21/17 20:17 Source of Information: Reports: Patient, RN, RN Notes Reviewed History Limitations: Reports: No Limitations - History of Present Illness INITIAL COMMENTS - FREE TEXT/NARRATIVE: Pt to Er with c/o not being able to breathe. Pt is on O2 at all times at home. Pt states it felt as though her nose was being pinched shut. She c/o upper abdominal/epigastric pains at times with decreased appetite. Patient denies chest pains, fever, chills, N/V/D. Patient states she feels she has a sinus infection. Onset: Gradual Bilateral Leg Pain Score (Numeric/FACES): 7 - Related Data Allergies Allergy/AdvReac Type Severity Reaction Status Date / Time red dye Allergy Mild Stomach Verified 08/21/17 19:02 Upset enalapril maleate Allergy Unknown Cannot Verified 08/21/17 19:02 [From Vasotec] Remember enalaprilat dihydrate Allergy Unknown Cannot Verified 08/21/17 19:02 [From Vasotec] Remember Penicillins Allergy Unknown Cannot Verified 08/21/17 19:02 Remember amlodipine Allergy Cannot Verified 08/21/17 19:02 Remember amoxicillin trihydrate Allergy Cannot Verified 08/21/17 19:02 [From Augmentin] Remember cephalexin [Cephalexin] Allergy Cannot Verified 08/21/17 19:02 Remember erythromycin base Allergy Cannot Verified 08/21/17 19:02 [Erythromycin Base] Remember influenza virus vaccine, Allergy Cannot Verified 08/21/17 19:02 specific Remember [Influenza Virus Vacc,Specific] losartan [Losartan] Allergy Nausea Verified 08/21/17 19:02 potassium clavulanate Allergy Cannot Verified 06/02/17 13:40 [From Augmentin] Remember Home Meds: Home Meds Calcium Citrate - Vit D Caplet 1 tab PO DAILY 03/28/13 [History] Carboxymethylcellulose 2 drop EYEBOTH QID PRN 03/28/13 [History] Omeprazole 1 cap PO DAILY 03/28/13 [History] Ferrous Gluconate 324 mg PO BID 07/08/13 [History] PARoxetine [Paxil] 10 mg PO DAILY 07/08/13 [History] oxyCODONE HCl/Acetaminophen [Percocet 5-325 mg Tablet] 1 tab PO TID 07/08/13 [ History] Furosemide [Lasix] 40 mg PO DAILY #30 tablet 07/16/13 [Rx] Magnesium Oxide 400 mg PO DAILY 09/10/14 [History] Metolazone 2.5 mg PO ASDIRECTED 09/10/14 [History] Aspirin [Low Dose Aspirin EC] 81 mg PO DAILY 11/04/14 [History] Potassium Chloride 40 meq PO TID 11/04/14 [History] Acetaminophen [Tylenol] 325 mg PO Q4H PRN 05/31/17 [History] Metoprolol Succinate 50 mg PO DAILY 05/31/17 [History] Nitroglycerin [Nitrostat] 0.4 mg SL ASDIRECTED PRN 05/31/17 [History] Past Medical History HEENT History: Reports: Other (See Below) Other HEENT History: wears glasses Cardiovascular History: Reports: Afib, Heart Failure, Hypertension Respiratory History: Reports: Other (See Below) Other Respiratory History: oxygen dependent Gastrointestinal History: Reports: GERD Genitourinary History: Reports: Urinary Incontinence 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: 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 Uterine Bleeding Musculoskeletal History: Reports: Arthritis, Back Pain, Chronic, Other (See Below) Other Musculoskeletal History: arthritis in lower back, knees, ankles and heels , left shoulder Neurological History: Reports: None Psychiatric History: Reports: None Other Psychiatric History: help balance hormones after hysterectomy Endocrine/Metabolic History: Reports: None Hematologic History: Reports: Anemia Immunologic History: Reports: None Oncologic (Cancer) History: Reports: Uterine Dermatologic History: Reports: Other (See Below) Other Dermatologic History: pediculosis capitis - Infectious Disease History Infectious Disease History: Reports: Chicken Pox, Mumps - Past Surgical History Other GI Surgeries/Procedures: 1984 cholecystectomy Other Female Surgeries/Procedures: 2012 hysterectomy Other Oncologic Surgeries/Procedures: hysterectomy Social & Family History - Family History Family Medical History: Noncontributory - Tobacco Use Smoking Status *Q: Never Smoker - Caffeine Use Caffeine Use: Reports: Coffee, Soda, Tea - Recreational Drug Use Recreational Drug Use: No - Living Situation & Occupation Living situation: Reports: Extended Care Facility Occupation: Disabled ED ROS GENERAL - Review of Systems Review Of Systems: ROS reveals no pertinent complaints other than HPI. ED EXAM, GENERAL - Physical Exam Exam: See Below Exam Limited By: No Limitations General Appearance: Alert, WD/WN, No Apparent Distress Eye Exam: Bilateral Eye: EOMI, Normal Inspection Ears: Normal External Exam, Hearing Grossly Normal Nose: Other (bilateral turbinate injection) Throat/Mouth: Normal Inspection, Normal Voice, No Airway Compromise Head: Atraumatic, Normocephalic Neck: Normal Inspection, Supple, Non-Tender, Full Range of Motion Respiratory/Chest: No Respiratory Distress, No Accessory Muscle Use, Chest Non- Tender, Decreased Breath Sounds Cardiovascular: Normal Peripheral Pulses, Irregularly Irregular Peripheral Pulses: 1+: Radial (L), Radial (R) GI/Abdominal: Normal Bowel Sounds, Soft, Tender (epigastric/RUQ) (Female) Exam: Deferred Rectal (Female) Exam: Deferred Back Exam: Normal Inspection, Full Range of Motion Extremities: Normal Inspection, Pedal Edema (+1-2), Limited Range of Motion ( arithritic joints) Neurological: Alert, Oriented, Normal Cognition, No Motor/Sensory Deficits Psychiatric: Normal Affect, Normal Mood Skin Exam: Warm, Dry, Intact, Normal Color, No Rash Lymphatic: No Adenopathy Course - Vital Signs Last Recorded V/S: Last Vital Signs Temp 98.6 F 08/21/17 18:50 Pulse 71 08/21/17 18:50 Resp 24 H 08/21/17 18:50 BP 137/77 08/21/17 18:50 Pulse Ox 97 08/21/17 18:50 - Orders/Labs/Meds Orders: Active Orders 24 hr Category Date Time Status EKG 12 Lead [EKG Documentation Completion] [RC] URGENT Care 08/21/17 19:08 Active UA W/MICROSCOPIC [URIN] Stat Lab 08/21/17 20:07 Ordered Labs: Laboratory Tests 08/21/17 08/21/17 08/21/17 Range/Units 19:06 19:06 19:06 WBC 6.6 (5.0-10.0) 10^3/uL RBC 4.88 (4.2-5.4) 10^6/uL Hgb 13.7 (12.0-16.0) g/dL Hct 44.0 (37.0-47.0) % MCV 90.2 (80-100) fL MCH 28.1 (27.0-34.0) pg MCHC 31.1 L (33.0-35.0) g/dL Plt Count 143 L (150-450) 10^3/uL Neut % (Auto) 64.0 (42.2-75.2) % Lymph % (Auto) 22.5 (20.5-50.1) % [place] % (Auto) 10.2 H (2-8) % Eos % (Auto) 3.0 (1.0-3.0) % Baso % (Auto) 0.3 (0.0-1.0) % Sodium 138 (135-145) mmol/L Potassium 3.5 L (3.6-5.0) mmol/L Chloride 94 L (101-111) mmol/L Carbon Dioxide 36.0 H (21.0-31.0) mmol/L Anion Gap 11.5 BUN 17 (7-18) mg/dL Creatinine 0.8 (0.6-1.3) mg/dL Est Cr Clr Drug Dosing 55.52 mL/min Estimated GFR (MDRD) > 60 BUN/Creatinine Ratio 21.25 Glucose 96 (74-105) mg/dL Calcium 9.0 (8.4-10.2) mg/dl Total Bilirubin 0.3 (0.2-1.0) mg/dL AST 19 (10-42) IU/L ALT 14 (10-60) IU/L Alkaline Phosphatase 70 (42-121) IU/L Troponin I < 0.02 (0.00-0.02) ng/ml B-Natriuretic Peptide 110 H (0-100) pg/ml Total Protein 7.8 (6.7-8.2) g/dl Albumin 3.6 (3.2-5.5) g/dl Globulin 4.2 Albumin/Globulin Ratio 0.86 Urine Color (YELLOW) Urine Appearance (CLEAR) Urine pH (5.0-9.0) Ur Specific [place] (1.005-1.030) Urine Protein (NEGATIVE) Urine Glucose (UA) (NEGATIVE) Urine Ketones (NEGATIVE) Urine Occult Blood (NEGATIVE) Urine Nitrite (NEGATIVE) Urine Bilirubin (NEGATIVE) Urine Urobilinogen (0.2-1.0) mg/dL Ur Leukocyte Esterase (NEGATIVE) Urine RBC /HPF Urine WBC (0-5/HPF) /HPF Ur Epithelial Cells /HPF Urine Bacteria (0-FEW/HPF) /HPF 08/21/17 Range/Units 20:07 WBC (5.0-10.0) 10^3/uL RBC (4.2-5.4) 10^6/uL Hgb (12.0-16.0) g/dL Hct (37.0-47.0) % MCV (80-100) fL MCH (27.0-34.0) pg MCHC (33.0-35.0) g/dL Plt Count (150-450) 10^3/uL Neut % (Auto) (42.2-75.2) % Lymph % (Auto) (20.5-50.1) % [place] % (Auto) (2-8) % Eos % (Auto) (1.0-3.0) % Baso % (Auto) (0.0-1.0) % Sodium (135-145) mmol/L Potassium (3.6-5.0) mmol/L Chloride (101-111) mmol/L Carbon Dioxide (21.0-31.0) mmol/L Anion Gap BUN (7-18) mg/dL Creatinine (0.6-1.3) mg/dL Est Cr Clr Drug Dosing mL/min Estimated GFR (MDRD) BUN/Creatinine Ratio Glucose (74-105) mg/dL Calcium (8.4-10.2) mg/dl Total Bilirubin (0.2-1.0) mg/dL AST (10-42) IU/L ALT (10-60) IU/L Alkaline Phosphatase (42-121) IU/L Troponin I (0.00-0.02) ng/ml B-Natriuretic Peptide (0-100) pg/ml Total Protein (6.7-8.2) g/dl Albumin (3.2-5.5) g/dl Globulin Albumin/Globulin Ratio Urine Color Yellow (YELLOW) Urine Appearance Slightly cloudy (CLEAR) Urine pH 7.0 (5.0-9.0) Ur Specific [place] 1.015 (1.005-1.030) Urine Protein Negative (NEGATIVE) Urine Glucose (UA) Negative (NEGATIVE) Urine Ketones Negative (NEGATIVE) Urine Occult Blood Negative (NEGATIVE) Urine Nitrite Negative (NEGATIVE) Urine Bilirubin Negative (NEGATIVE) Urine Urobilinogen 0.2 (0.2-1.0) mg/dL Ur Leukocyte Esterase Negative (NEGATIVE) Urine RBC 0-5 /HPF Urine WBC 0-5 (0-5/HPF) /HPF Ur Epithelial Cells Moderate H /HPF Urine Bacteria Occasional (0-FEW/HPF) /HPF Meds: Medications Discontinued Medications Generic Name Dose Route Start Last Admin Trade Name Alana PRN Reason Stop Dose Admin Levofloxacin 500 mg 08/21/17 21:08 08/21/17 21:26 Levaquin PO 08/21/17 21:09 500 mg ONETIME ONE Administration Levofloxacin Confirm 08/21/17 21:11 08/21/17 21:26 Levaquin Administered 08/21/17 21:12 Not Given Dose 500 mg .ROUTE .STK-MED ONE Departure - Departure Time of Disposition: 21:06 Disposition: Home, Self-Care 01 Condition: Fair Clinical Impression: Sinusitis Qualifiers: Sinusitis location: unspecified location Chronicity: acute Recurrence: not specified as recurrent Qualified Code(s): J01.90 - Acute sinusitis, unspecified - Discharge Information Instructions: Shortness of Breath, Adult, [id number], Sinusitis, Adult, Easy- to-Read, Sinus Rinse, [id number] Referrals: Torsten Villa MD [Primary Care Provider] - Forms: ED Department Discharge Additional Instructions: RX: Levaquin Follow up with your primary care facility - My Orders Last 24 Hours: My Active Orders 08/21/17 19:08 EKG 12 Lead [EKG Documentation Completion] [] URGENT 08/21/17 20:07 UA W/MICROSCOPIC [URIN] Stat - Assessment/Plan Last 24 Hours: My Active Orders 08/21/17 19:08 EKG 12 Lead [EKG Documentation Completion] [] URGENT 08/21/17 20:07 UA W/MICROSCOPIC [URIN] Stat
[2017-08-21] MEDS ORDERED: Levofloxacin 500 MG Tab ONE (21:11)
--- NOTE | 2017-08-22 11:38 | EKG ---
08/21/2017 - JOAQUIM BOTELLO - TIME: 1856 hours. FINDINGS: EKG shows atrial fibrillation with a controlled ventricular response. MOD /[id number]
== END 2017-08-21 21:35 | disposition home or self-care (01) ==
LOC: DL.ED 18:46
DX: J01.90 Acute sinusitis, unspecified (principal); I11.0 Hypertensive heart disease with heart failure; I50.9 Heart failure, unspecified; I48.91 Unspecified atrial fibrillation; K21.9 Gastro-esophageal reflux disease without esophagitis; Z79.82 Long term (current) use of aspirin; Z79.899 Other long term (current) drug therapy; Z88.1 Allergy status to other antibiotic agents; Z88.7 Allergy status to serum and vaccine; Z91.09 Other allergy status, other than to drugs and biological substances; Z88.0 Allergy status to penicillin
CPT/HCPCS: 36415; 80053; 81001; 83880; 84484; 85025; 93005; 93010; 99285; A9270; 99283

== ENCOUNTER 2018-03-06 14:16 | Emergency (ER) | payer MEDICARE, MEDICAID ==
[2018-03-06] MEDS ORDERED: Sodium Chloride 0.9% 10 ML Syringe FLUSH PRN (14:36)
[2018-03-06] MEDS ORDERED: GI Cocktail Oral Solution 30 ML PO ONE (14:36)
--- NOTE | 2018-03-06 14:38 | EDM.PDOC ---
ED HPI GENERAL MEDICAL PROBLEM - General Chief Complaint: Chest Pain Stated Complaint: AMBULANCE Time Seen by Provider: 03/06/18 14:25 Source of Information: Reports: Patient History Limitations: Reports: No Limitations - History of Present Illness INITIAL COMMENTS - FREE TEXT/NARRATIVE: Patient comes imaging Department today with complaints of shortness of breath and epigastric type chest pain. For the past 2 nights the patient has complained of a pain just below her xiphoid process. Pain does get worse with palpation. It is difficult for her to sleep at night because when she lays down she becomes quite short of breath. She's had no nausea no vomiting. No diaphoresis. The pain does not radiate anywhere else. She does have a history of a hernia in the epigastric region as well. She has had no nausea no vomiting. No bloating sensation or burping. No diarrhea normal bowel movements. No hematuria dysuria or urinary frequency. - Related Data Allergies Allergy/AdvReac Type Severity Reaction Status Date / Time red dye Allergy Mild Stomach Verified 08/21/17 19:02 Upset enalapril maleate Allergy Unknown Cannot Verified 08/21/17 19:02 [From Vasotec] Remember enalaprilat dihydrate Allergy Unknown Cannot Verified 08/21/17 19:02 [From Vasotec] Remember Penicillins Allergy Unknown Cannot Verified 08/21/17 19:02 Remember amlodipine Allergy Cannot Verified 08/21/17 19:02 Remember amoxicillin trihydrate Allergy Cannot Verified 08/21/17 19:02 [From Augmentin] Remember cephalexin [Cephalexin] Allergy Cannot Verified 08/21/17 19:02 Remember erythromycin base Allergy Cannot Verified 08/21/17 19:02 [Erythromycin Base] Remember influenza virus vaccine, Allergy Cannot Verified 08/21/17 19:02 specific Remember [Influenza Virus Vacc,Specific] losartan [Losartan] Allergy Nausea Verified 08/21/17 19:02 potassium clavulanate Allergy Cannot Verified 06/02/17 13:40 [From Augmentin] Remember Home Meds: Home Meds Calcium Citrate - Vit D Caplet 1 tab PO DAILY 03/28/13 [History] Carboxymethylcellulose 2 drop EYEBOTH QID PRN 03/28/13 [History] Omeprazole 1 cap PO DAILY 03/28/13 [History] Ferrous Gluconate 324 mg PO BID 07/08/13 [History] PARoxetine [Paxil] 10 mg PO DAILY 07/08/13 [History] oxyCODONE HCl/Acetaminophen [Percocet 5-325 mg Tablet] 1 tab PO TID 07/08/13 [ History] Furosemide [Lasix] 40 mg PO DAILY #30 tablet 07/16/13 [Rx] Magnesium Oxide 400 mg PO DAILY 09/10/14 [History] metOLazone [Metolazone] 2.5 mg PO ASDIRECTED 09/10/14 [History] Aspirin [Low Dose Aspirin EC] 81 mg PO DAILY 11/04/14 [History] Potassium Chloride 40 meq PO TID 11/04/14 [History] Acetaminophen [Tylenol] 325 mg PO Q4H PRN 05/31/17 [History] Metoprolol Succinate 50 mg PO DAILY 05/31/17 [History] Nitroglycerin [Nitrostat] 0.4 mg SL ASDIRECTED PRN 05/31/17 [History] Sucralfate [Carafate] 1 gm PO QID #120 tablet 03/06/18 [Rx] Past Medical History HEENT History: Reports: Other (See Below) Other HEENT History: wears glasses Cardiovascular History: Reports: Afib, Heart Failure, Hypertension Respiratory History: Reports: Other (See Below) Other Respiratory History: oxygen dependent Gastrointestinal History: Reports: GERD Genitourinary History: Reports: Urinary Incontinence 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: 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 Musculoskeletal History: Reports: Arthritis, Back Pain, Chronic, Other (See Below) Other Musculoskeletal History: arthritis in lower back, knees, ankles and heels , left shoulder Neurological History: Reports: None Psychiatric History: Reports: None Other Psychiatric History: help balance hormones after hysterectomy Endocrine/Metabolic History: Reports: None Hematologic History: Reports: Anemia Immunologic History: Reports: None Oncologic (Cancer) History: Reports: Uterine Dermatologic History: Reports: Other (See Below) Other Dermatologic History: pediculosis capitis - Infectious Disease History Infectious Disease History: Reports: Chicken Pox, Mumps - Past Surgical History Other GI Surgeries/Procedures: 1984 cholecystectomy Other Female Surgeries/Procedures: 2012 hysterectomy Other Oncologic Surgeries/Procedures: hysterectomy Social & Family History - Family History Family Medical History: Noncontributory - Caffeine Use Caffeine Use: Reports: Coffee, Soda, Tea - Living Situation & Occupation Living situation: Reports: Extended Care Facility Occupation: Disabled ED ROS GENERAL - Review of Systems Review Of Systems: ROS reveals no pertinent complaints other than HPI. ED EXAM, GENERAL - Physical Exam Exam: See Below Exam Limited By: No Limitations General Appearance: Alert, WD/WN, No Apparent Distress, Obese Neck: Normal Inspection, Supple Respiratory/Chest: No Respiratory Distress, Lungs Clear, Normal Breath Sounds, No Accessory Muscle Use, Chest Non-Tender Cardiovascular: Normal Peripheral Pulses, Regular Rate, Rhythm, No Edema, No Murmur, Irregularly Irregular (history of afib) Peripheral Pulses: 2+: Radial (L), Radial (R), Posterior Tibial (L), Posterior Tibial (R), Dorsalis Pedis (L), Dorsalis Pedis (R) GI/Abdominal: Normal Bowel Sounds, Soft, No Distention, No Abnormal Bruit, No Mass, Tender (to the very epigastric region. No guarding no rebound. No right upper quadrant oreft upper quadrant enderness.) Back Exam: Normal Inspection, Full Range of Motion Extremities: Normal Inspection, Normal Range of Motion, Non-Tender, Normal Capillary Refill, Pedal Edema (1+ bilateral itting edema primarily around the ankles.) Neurological: Alert, Oriented, Normal Cognition, No Motor/Sensory Deficits Psychiatric: Normal Affect, Normal Mood Skin Exam: Warm, Dry, Intact, Normal Color, No Rash EKG INTERPRETATION EKG Date: 03/06/18 Time: 14:24 Rhythm: A-Fib Rate (Beats/Min): 65 [place]: Normal P-Wave: Present QRS: Normal ST-T: Normal QT: Normal Comparison: No Change Course - Orders/Labs/Meds Labs: Laboratory Tests 03/06/18 03/06/18 03/06/18 Range/Units 14:20 14:20 14:20 WBC 6.6 (5.0-10.0) 10^3/uL RBC 5.02 (4.2-5.4) 10^6/uL Hgb 14.2 (12.0-16.0) g/dL Hct 44.9 (37.0-47.0) % MCV 89.4 (80-100) fL MCH 28.3 (27.0-34.0) pg MCHC 31.6 L (33.0-35.0) g/dL Plt Count 145 L (150-450) 10^3/uL Neut % (Auto) 67.3 (42.2-75.2) % Lymph % (Auto) 19.7 L (20.5-50.1) % [place] % (Auto) 9.3 H (2-8) % Eos % (Auto) 3.4 H (1.0-3.0) % Baso % (Auto) 0.3 (0.0-1.0) % Sodium 137 (135-145) mmol/L Potassium 3.4 L (3.6-5.0) mmol/L Chloride 93 L (101-111) mmol/L Carbon Dioxide 32.0 H (21.0-31.0) mmol/L Anion Gap 15.4 BUN 17 (7-18) mg/dL Creatinine 0.8 (0.6-1.3) mg/dL Est Cr Clr Drug Dosing TNP Estimated GFR (MDRD) > 60 BUN/Creatinine Ratio 21.25 Glucose 100 (74-105) mg/dL Calcium 9.0 (8.4-10.2) mg/dl Total Bilirubin 0.6 (0.2-1.0) mg/dL AST 19 (10-42) IU/L ALT < 5 L (10-60) IU/L Alkaline Phosphatase 69 (42-121) IU/L Troponin I < 0.02 (0.00-0.02) ng/ml B-Natriuretic Peptide 68 (0-100) pg/ml Total Protein 7.7 (6.7-8.2) g/dl Albumin 3.5 (3.2-5.5) g/dl Globulin 4.2 Albumin/Globulin Ratio 0.83 Lipase 39 (22-51) U/L Meds: Medications Discontinued Medications Generic Name Dose Route Start Last Admin Trade Name Freq PRN Reason Stop Dose Admin Al Hydroxide/Mg Hydroxide 30 ml 03/06/18 14:36 03/06/18 15:12 Gi Cocktail PO 03/06/18 14:37 30 ml ONETIME ONE Administration Sodium Chloride 10 ml 03/06/18 14:36 03/06/18 15:13 Saline Flush FLUSH 10 ml ASDIRECTED PRN Administration Keep Vein Open - Radiology Interpretation Free Text/Narrative:: cxr no acute findings - Re-Assessments/Exams Free Text/Narrative Re-Assessment/Exam: 03/06/18 GI cocktail with complete resolution of the patient's symptoms. Laboratory evaluation to include troponin and BNP chest x-ray is rather unremarkable. This is a patient in chronic atrial fibrillation who her primary care decided not to be placed on anticoagulation therapy. she feels much better and she would like to leave. Discharge plan as below was explained to the patient she was comfortable with this plan and her questions were answered. Departure - Departure Time of Disposition: 15:54 Disposition: Home, Self-Care 01 Clinical Impression: GERD (gastroesophageal reflux disease) Qualifiers: Esophagitis presence: without esophagitis Qualified Code(s): K21.9 - Gastro- esophageal reflux disease without esophagitis Prescriptions: Sucralfate [Carafate] 1 gm PO QID #120 tablet Instructions: Gastroesophageal Reflux Disease, Adult, [id number] Referrals: Torsten Villa MD [Family Provider] - Forms: ED Department Discharge Additional Instructions: Increase omeprazole to twice daily for 2 weeks then back to once a day. Carafate 1 tablet before meals and at bedtime. RX given. Return to the ED if new or worsening symptoms Follow up with primary care provider in the next 4-6 days if not improving sooner if worse. - Assessment/Plan Assessment:: GERD epigastric pain Plan: Increase omeprazole to twice daily for 2 weeks then back to once a day. Carafate 1 tablet before meals and at bedtime. RX given. Return to the ED if new or worsening symptoms Follow up with primary care provider in the next 4-6 days if not improving sooner if worse.
[2018-03-06 14:54] LABS: ANION GAP 15.4; CHLORIDE,CL 93 mmol/L (101-111); SODIUM,NA 137 mmol/L (135-145)
--- NOTE | 2018-03-06 15:28 | CR ---
Clinical history: 77-year-old female with chest pain and shortness of breath. Interpretation: Senescent ectasia dorsal aorta and chronic borderline cardiomegaly. No cephalization of vascular flow, signs of alveolar edema or dependent new pleural fluid accumulation when compared to 25 May and 12 October 2016 exam. Note: Subtle asymmetric right suprahilar nodular density with suggestion of ipsilateral hilar lymphadenopathy. Recommend considering CT scan on an elective basis, particularly, if patient has been a "smoker". No other lung mass lesion and no focal lobar pneumonia. No atelectasis/collapse. No pneumothorax. Conclusion: No heart failure or lobar pneumonia. (See comments regarding right suprahilar density above)
== END 2018-03-06 16:25 | disposition home or self-care (01) ==
LOC: DL.ED 14:16
DX: K21.9 Gastro-esophageal reflux disease without esophagitis (principal); I11.0 Hypertensive heart disease with heart failure; I50.9 Heart failure, unspecified; Z88.8 Allergy status to other drugs, medicaments and biological substances; Z88.0 Allergy status to penicillin; Z91.041 Radiographic dye allergy status; Z88.1 Allergy status to other antibiotic agents; Z79.82 Long term (current) use of aspirin; Z79.899 Other long term (current) drug therapy
CPT/HCPCS: 36415; 71046; 80053; 83690; 83880; 84484; 85025; 93005; 99285; A9270

== ENCOUNTER 2019-04-08 19:02 | Emergency (ER) | payer MEDICARE, MEDICAID ==
[2019-04-08] MEDS: Sodium Chloride 0.9% 10 ML Syringe FLUSH PRN (20:25)
--- NOTE | 2019-04-08 20:25 | EDM.PDOC ---
ED HPI GENERAL MEDICAL PROBLEM - General Chief Complaint: Respiratory Problem Stated Complaint: CANT BREATH Time Seen by Provider: 04/08/19 20:25 Source of Information: Reports: Patient, Family, RN, RN Notes Reviewed - History of Present Illness INITIAL COMMENTS - FREE TEXT/NARRATIVE: Patient presents to ER with complaint of increased cough, shortness of breath, headache, chest pain with cough. Patient states she has been around children, grandchildren who have been ill recently. Patient states she does not use nebulizers at home. Patient states she is on 3 L of oxygen at all times at home. Patient states only production with cough is phlegm. Chest Pain Score (Numeric/FACES): 9 - Related Data Allergies Allergy/AdvReac Type Severity Reaction Status Date / Time red dye Allergy Mild Stomach Verified 04/08/19 21:03 Upset enalapril maleate Allergy Unknown Cannot Verified 04/08/19 21:03 [From Vasotec] Remember enalaprilat dihydrate Allergy Unknown Cannot Verified 04/08/19 21:03 [From Vasotec] Remember Penicillins Allergy Unknown Cannot Verified 04/08/19 21:03 Remember amlodipine Allergy Cannot Verified 04/08/19 21:03 Remember amoxicillin trihydrate Allergy Cannot Verified 04/08/19 21:03 [From Augmentin] Remember cephalexin [Cephalexin] Allergy Cannot Verified 04/08/19 21:03 Remember erythromycin base Allergy Cannot Verified 04/08/19 21:03 [Erythromycin Base] Remember influenza virus vaccine, Allergy Cannot Verified 04/08/19 21:03 specific Remember [Influenza Virus Vacc,Specific] losartan [Losartan] Allergy Nausea Verified 04/08/19 21:03 potassium clavulanate Allergy Cannot Verified 09/04/18 12:27 [From Augmentin] Remember Home Meds: Home Meds Calcium Citrate - Vit D Caplet 1 tab PO DAILY 03/28/13 [History] Carboxymethylcellulose 2 drop EYEBOTH QID PRN 03/28/13 [History] Omeprazole 20 mg PO DAILY 03/28/13 [History] Ferrous Gluconate 324 mg PO BID 07/08/13 [History] PARoxetine [Paxil] 10 mg PO DAILY 07/08/13 [History] oxyCODONE HCl/Acetaminophen [Percocet 5-325 mg Tablet] 1 tab PO TID PRN [History] Furosemide [Lasix] 40 mg PO DAILY #30 tablet 07/16/13 [Rx] metOLazone [Metolazone] 2.5 mg PO ASDIRECTED 09/10/14 [History] Aspirin [Low Dose Aspirin EC] 81 mg PO DAILY 11/04/14 [History] Potassium Chloride 40 meq PO TID 11/04/14 [History] Acetaminophen [Tylenol] 325 mg PO Q4H PRN 05/31/17 [History] Metoprolol Succinate 50 mg PO DAILY 05/31/17 [History] Nitroglycerin [Nitrostat] 0.4 mg SL ASDIRECTED PRN 05/31/17 [History] Past Medical History HEENT History: Reports: Other (See Below) Other HEENT History: wears glasses Cardiovascular History: Reports: Afib, Heart Failure, Hypertension Respiratory History: Reports: Other (See Below) Other Respiratory History: oxygen dependent Gastrointestinal History: Reports: GERD Genitourinary History: Reports: Urinary Incontinence SPOUT TENDER History: Reports: 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 Uterine Bleeding Musculoskeletal History: Reports: Arthritis, Back Pain, Chronic, Other (See Below) Other Musculoskeletal History: arthritis in lower back, knees, ankles and heels , left shoulder Neurological History: Reports: None Psychiatric History: Reports: None Other Psychiatric History: help balance hormones after hysterectomy Endocrine/Metabolic History: Reports: None Hematologic History: Reports: Anemia Immunologic History: Reports: None Oncologic (Cancer) History: Reports: Uterine Dermatologic History: Reports: Other (See Below) Other Dermatologic History: pediculosis capitis - Infectious Disease History Infectious Disease History: Reports: Chicken Pox, Mumps - Past Surgical History Other GI Surgeries/Procedures: 1984 cholecystectomy Other Female Surgeries/Procedures: 2012 hysterectomy Other Oncologic Surgeries/Procedures: hysterectomy Social & Family History - Family History Family Medical History: Noncontributory - Caffeine Use Caffeine Use: Reports: Coffee, Tea - Living Situation & Occupation Living situation: Reports: Extended Care Facility Occupation: Disabled ED ROS GENERAL - Review of Systems Review Of Systems: Comprehensive ROS is negative, except as noted in HPI. ED EXAM, GENERAL - Physical Exam Exam: See Below Exam Limited By: No Limitations General Appearance: Alert, WD/WN, Moderate Distress Eye Exam: Bilateral Eye: EOMI, Normal Inspection Ears: Normal External Exam, Hearing Grossly Normal Nose: Normal Inspection Throat/Mouth: Normal Inspection, Normal Voice, No Airway Compromise Head: Atraumatic, Normocephalic Neck: Normal Inspection, Supple, Non-Tender, Full Range of Motion Respiratory/Chest: Decreased Breath Sounds, Crackles (throat), Rhonchi ( throughout) Cardiovascular: Normal Peripheral Pulses, Regular Rate, Rhythm, No Edema, No Gallop, No JVD, No Murmur, No Rub Peripheral Pulses: 2+: Radial (L), Radial (R) GI/Abdominal: Normal Bowel Sounds, Soft, Non-Tender (Female) Exam: Deferred Rectal (Female) Exam: Deferred Back Exam: Normal Inspection, Full Range of Motion, NT Extremities: Normal Inspection, Normal Range of Motion, Non-Tender, Normal Capillary Refill, No Pedal Edema Neurological: Alert, Oriented, Normal Cognition Psychiatric: Normal Affect, Normal Mood Skin Exam: Warm, Dry, Intact, Normal Color, No Rash Lymphatic: No Adenopathy Course - Vital Signs Last Recorded V/S: Last Vital Signs Temp 99.2 F 04/08/19 20:00 Pulse 85 04/08/19 20:00 Resp 21 H 04/08/19 20:00 BP 145/82 H 04/08/19 20:00 Pulse Ox 97 04/08/19 20:00 - Orders/Labs/Meds Orders: Active Orders 24 hr Category Date Time Status Peripheral IV Care [RC] . DIRECTED Care 04/08/19 20:12 Active RT Aerosol Therapy [RC] ASDIRECTED Care 04/08/19 20:37 Active Chest 1V Frontal [CR] Stat Exams 04/08/19 20:11 Taken B-TYPE NATRIURETIC PEPTIDE,BNP [CHEM] Stat Lab 04/08/19 20:21 Received CULTURE BLOOD [BC] Stat Lab 04/08/19 20:21 Received CULTURE BLOOD [BC] Stat Lab 04/08/19 20:45 Received CULTURE URINE [RM] Stat Lab 04/08/19 20:12 Received Sodium Chloride 0.9% [Saline Flush] Med 04/08/19 20:11 Active 10 ml FLUSH ASDIRECTED PRN Blood Culture x2 Reflex Set [OM.PC] Stat Oth 04/08/19 20:12 Ordered Peripheral IV Insertion Adult [OM.PC] Stat Oth 04/08/19 20:11 Ordered Medication Orders Sodium Chloride (Saline Flush) 10 ml FLUSH ASDIRECTED PRN PRN Reason: Keep Vein Open Last Admin: 04/08/19 20:25 Dose: 10 ml Labs: Laboratory Tests 04/08/19 04/08/19 04/08/19 Range/Units 20:12 20:21 20:21 WBC 8.4 (5.0-10.0) 10^3/uL RBC 5.01 (4.2-5.4) 10^6/uL Hgb 14.3 (12.0-16.0) g/dL Hct 45.3 (37.0-47.0) % MCV 90.4 (80-100) fL MCH 28.5 (27.0-34.0) pg MCHC 31.6 L (33.0-35.0) g/dL Plt Count 121 L (150-450) 10^3/uL Neut % (Auto) 83.0 H (42.2-75.2) % Lymph % (Auto) 6.2 L (20.5-50.1) % [place] % (Auto) 8.5 H (2-8) % Eos % (Auto) 2.2 (1.0-3.0) % Baso % (Auto) 0.1 (0.0-1.0) % Sodium 138 (135-145) mmol/L Potassium 3.4 L (3.6-5.0) mmol/L Chloride 93 L (101-111) mmol/L Carbon Dioxide 37.0 H (21.0-31.0) mmol/L Anion Gap 11.4 BUN 17 (7-18) mg/dL Creatinine 0.7 (0.6-1.3) mg/dL Est Cr Clr Drug Dosing 61.52 mL/min Estimated GFR (MDRD) > 60 BUN/Creatinine Ratio 24.28 Glucose 98 (74-105) mg/dL Lactic Acid (0.5-2.0) mmol/L Calcium 9.0 (8.4-10.2) mg/dl Total Bilirubin 0.9 (0.2-1.0) mg/dL AST 20 (10-42) IU/L ALT 15 (10-60) IU/L Alkaline Phosphatase 71 (42-121) IU/L Total Protein 8.0 (6.7-8.2) g/dl Albumin 3.8 (3.2-5.5) g/dl Globulin 4.2 Albumin/Globulin Ratio 0.90 Urine Color Yellow (YELLOW) Urine Appearance Clear (CLEAR) Urine pH 8.5 (5.0-9.0) Ur Specific [place] 1.020 (1.005-1.030) Urine Protein Negative (NEGATIVE) Urine Glucose (UA) Negative (NEGATIVE) Urine Ketones Negative (NEGATIVE) Urine Occult Blood Negative (NEGATIVE) Urine Nitrite Negative (NEGATIVE) Urine Bilirubin Negative (NEGATIVE) Urine Urobilinogen 0.2 (0.2-1.0) mg/dL Ur Leukocyte Esterase Trace H (NEGATIVE) Urine RBC 0-5 /HPF Urine WBC 30-40 H (0-5/HPF) /HPF Ur Epithelial Cells Rare (NOT SEEN) /HPF Amorphous Sediment Few (NOT SEEN) /HPF Urine Bacteria Rare (0-FEW/HPF) /HPF Urine Mucus Not seen (NOT SEEN) /LPF 04/08/19 Range/Units 20:21 WBC (5.0-10.0) 10^3/uL RBC (4.2-5.4) 10^6/uL Hgb (12.0-16.0) g/dL Hct (37.0-47.0) % MCV (80-100) fL MCH (27.0-34.0) pg MCHC (33.0-35.0) g/dL Plt Count (150-450) 10^3/uL Neut % (Auto) (42.2-75.2) % Lymph % (Auto) (20.5-50.1) % [place] % (Auto) (2-8) % Eos % (Auto) (1.0-3.0) % Baso % (Auto) (0.0-1.0) % Sodium (135-145) mmol/L Potassium (3.6-5.0) mmol/L Chloride (101-111) mmol/L Carbon Dioxide (21.0-31.0) mmol/L Anion Gap BUN (7-18) mg/dL Creatinine (0.6-1.3) mg/dL Est Cr Clr Drug Dosing mL/min Estimated GFR (MDRD) BUN/Creatinine Ratio Glucose (74-105) mg/dL Lactic Acid 1.3 (0.5-2.0) mmol/L Calcium (8.4-10.2) mg/dl Total Bilirubin (0.2-1.0) mg/dL AST (10-42) IU/L ALT (10-60) IU/L Alkaline Phosphatase (42-121) IU/L Total Protein (6.7-8.2) g/dl Albumin (3.2-5.5) g/dl Globulin Albumin/Globulin Ratio Urine Color (YELLOW) Urine Appearance (CLEAR) Urine pH (5.0-9.0) Ur Specific [place] (1.005-1.030) Urine Protein (NEGATIVE) Urine Glucose (UA) (NEGATIVE) Urine Ketones (NEGATIVE) Urine Occult Blood (NEGATIVE) Urine Nitrite (NEGATIVE) Urine Bilirubin (NEGATIVE) Urine Urobilinogen (0.2-1.0) mg/dL Ur Leukocyte Esterase (NEGATIVE) Urine RBC /HPF Urine WBC (0-5/HPF) /HPF Ur Epithelial Cells (NOT SEEN) /HPF Amorphous Sediment (NOT SEEN) /HPF Urine Bacteria (0-FEW/HPF) /HPF Urine Mucus (NOT SEEN) /LPF influenza A: Negative Influenza B: Negative Meds: Medications Generic Name Dose Route Start Last Admin Trade Name Freq PRN Reason Stop Dose Admin Sodium Chloride 10 ml 04/08/19 20:11 04/08/19 20:25 Saline Flush FLUSH 10 ml ASDIRECTED PRN Administration Keep Vein Open Discontinued Medications Generic Name Dose Route Start Last Admin Trade Name Freq PRN Reason Stop Dose Admin Albuterol/Ipratropium 3 ml 04/08/19 20:36 04/08/19 20:53 Duoneb 3.0-0.5 Mg/3 Ml NEB 04/08/19 20:37 3 ml ONETIME ONE Administration Azithromycin 500 mg 04/08/19 21:13 04/08/19 21:17 Zithromax PO 04/08/19 21:14 500 mg ONETIME ONE Administration Methylprednisolone Sodium Succinate 125 mg 04/08/19 20:36 04/08/19 20:53 Solu-Medrol IVPUSH 04/08/19 20:37 125 mg ONETIME ONE Administration Oxycodone HCl 5 mg 04/08/19 20:37 04/08/19 20:53 Oxycodone PO 04/08/19 20:38 5 mg ONETIME ONE Administration - Radiology Interpretation Free Text/Narrative:: chest x-ray: FINDINGS: Lungs: The lungs are normal. Pleural space: There are no pleural effusions present. Heart/Mediastinum: The heart demonstrates moderate diffuse enlargement. The pulmonary arteries are not enlarged. Bones/joints: The spine, ribs, and pectoral girdles are normal. IMPRESSION: Moderate cardiomegaly. Thank you for allowing us to participate in the care of your patient. Dictated and Authenticated by: Carl Perez MD 04/08/2019 8:41 PM Central Time ([place] & [place]) See radiologist's report when compared to March 06 film, cardiomegaly is the same. Patient informed and encouraged follow-up. Departure - Departure Time of Disposition: 21:25 Disposition: Home, Self-Care 01 Condition: Fair Clinical Impression: Cough Upper respiratory infection Qualifiers: URI type: unspecified viral URI Qualified Code(s): J06.9 - Acute upper respiratory infection, unspecified - Discharge Information *PRESCRIPTION DRUG MONITORING PROGRAM REVIEWED*: No *COPY OF PRESCRIPTION DRUG MONITORING REPORT IN PATIENT LILIANE: No Instructions: Community-Acquired Pneumonia, Adult, [id number], Chronic Obstructive Pulmonary Disease Exacerbation, [id number], Cough, Adult, Easy-to- Read, Upper Respiratory Infection, Adult, [id number], Shortness of Breath, Adult, [id number] Forms: ED Department Discharge Additional Instructions: RX: Azithromycin, Prednisone, Duonebs Follow up with your primary care facility Sepsis Event Note - Focused Exam Vital Signs: Vital Signs Temp Pulse Resp BP Pulse Ox 04/08/19 20:00 99.2 F 85 21 H 145/82 H 97 Date Exam was Performed: 04/08/19 Time Exam was Performed: 21:25 - My Orders Last 24 Hours: My Active Orders 04/08/19 20:11 Chest 1V Frontal [CR] Stat Sodium Chloride 0.9% [Saline Flush] 10 ml FLUSH ASDIRECTED PRN Peripheral IV Insertion Adult [OM.PC] Stat 04/08/19 20:12 Peripheral IV Care [RC] . DIRECTED CULTURE URINE [RM] Stat Blood Culture x2 Reflex Set [OM.PC] Stat 04/08/19 20:21 B-TYPE NATRIURETIC PEPTIDE,BNP [CHEM] Stat CULTURE BLOOD [BC] Stat 04/08/19 20:37 RT Aerosol Therapy [RC] ASDIRECTED 04/08/19 20:45 CULTURE BLOOD [BC] Stat - Assessment/Plan Last 24 Hours: My Active Orders 04/08/19 20:11 Chest 1V Frontal [CR] Stat Sodium Chloride 0.9% [Saline Flush] 10 ml FLUSH ASDIRECTED PRN Peripheral IV Insertion Adult [OM.PC] Stat 04/08/19 20:12 Peripheral IV Care [RC] . DIRECTED CULTURE URINE [RM] Stat Blood Culture x2 Reflex Set [OM.PC] Stat 04/08/19 20:21 B-TYPE NATRIURETIC PEPTIDE,BNP [CHEM] Stat CULTURE BLOOD [BC] Stat 04/08/19 20:37 RT Aerosol Therapy [RC] ASDIRECTED 04/08/19 20:45 CULTURE BLOOD [BC] Stat
[2019-04-08 20:37] VITALS: BP 145/82; PULSE 85
[2019-04-08 20:49] LABS: ANION GAP 11.4; CHLORIDE,CL 93 mmol/L (101-111); SODIUM,NA 138 mmol/L (135-145)
[2019-04-08] MEDS: oxyCODONE 5 MG Tab PO ONE (20:53)
[2019-04-08] MEDS: Albuterol/Ipratropium 3.0-0.5 MG/3 ML Neb Soln NEB ONE (20:53)
[2019-04-08] MEDS: methylPREDNISolone Sodium Succinate 125 MG/2 ML SDV IVPUSH ONE (20:53)
[2019-04-08] MEDS: Azithromycin 250 MG Tab PO ONE (21:17)
== END 2019-04-08 21:40 | disposition home or self-care (01) ==
LOC: DL.ED 19:02
DX: J06.9 Acute upper respiratory infection, unspecified (principal); I48.91 Unspecified atrial fibrillation; I11.0 Hypertensive heart disease with heart failure; I50.9 Heart failure, unspecified; K21.9 Gastro-esophageal reflux disease without esophagitis; D64.9 Anemia, unspecified; Z88.8 Allergy status to other drugs, medicaments and biological substances; Z88.0 Allergy status to penicillin; Z88.1 Allergy status to other antibiotic agents; Z88.7 Allergy status to serum and vaccine; Z91.048 Other nonmedicinal substance allergy status; Z79.899 Other long term (current) drug therapy; Z79.82 Long term (current) use of aspirin
CPT/HCPCS: 36415; 71045; 80053; 81001; 83605; 83880; 85025; 87040; 87086; 87088; 87186; 87804; 96374; 99283; 99285-25; A9270-GY; J2930; J7620-GY

== ENCOUNTER 2019-07-25 11:26 | Emergency (ER) | payer MEDICARE, MEDICAID ==
[2019-07-25] MEDS ORDERED: Succinylcholine 200 MG/10 ML MDV IV ONE (11:27)
[2019-07-25] MEDS ORDERED: Propofol 200 MG/20 ML SDV IV ONE (11:27)
[2019-07-25] MEDS ORDERED: Propofol 1,000 MG/100 ML SDV IV ONE (11:27)
[2019-07-25] MEDS ORDERED: Lidocaine 1% 30 ML SDV ONE (11:27)
--- NOTE | 2019-07-25 11:27 | EDM.PDOC ---
ED HPI GENERAL MEDICAL PROBLEM - General Chief Complaint: Cardiovascular Problem Stated Complaint: UNKNOWN Time Seen by Provider: 07/25/19 11:26 Source of Information: Reports: Patient, EMS, Old Records, RN, RN Notes Reviewed - History of Present Illness INITIAL COMMENTS - FREE TEXT/NARRATIVE: Pt arrives from home by [facility] with c/o progressively worsening shortness of breath over the past 3 days. Daughter tried to get pt to come to ER yesterday, but pt refused. Pt found by EMS to be in A-fib with RVR rate in 150's. Pt denies chest pain. Unsure if any recent fevers. Denies chest pain. Pt gives limited history due to dyspnea and confusion. Onset: Gradual, Unknown/Unsure Duration: Day(s): (3), Getting Worse Location: Reports: Chest, Generalized Severity: Severe Improves with: Reports: None Worsens with: Reports: None Associated Symptoms: Reports: No Other Symptoms - Related Data Allergies Allergy/AdvReac Type Severity Reaction Status Date / Time red dye Allergy Mild Stomach Verified 04/08/19 21:03 Upset enalapril maleate Allergy Unknown Cannot Verified 04/08/19 21:03 [From Vasotec] Remember enalaprilat dihydrate Allergy Unknown Cannot Verified 04/08/19 21:03 [From Vasotec] Remember Penicillins Allergy Unknown Cannot Verified 04/08/19 21:03 Remember amlodipine Allergy Cannot Verified 04/08/19 21:03 Remember amoxicillin trihydrate Allergy Cannot Verified 04/08/19 21:03 [From Augmentin] Remember cephalexin [Cephalexin] Allergy Cannot Verified 04/08/19 21:03 Remember erythromycin base Allergy Cannot Verified 04/08/19 21:03 [Erythromycin Base] Remember influenza virus vaccine, Allergy Cannot Verified 04/08/19 21:03 specific Remember [Influenza Virus Vacc,Specific] losartan [Losartan] Allergy Nausea Verified 04/08/19 21:03 potassium clavulanate Allergy Cannot Verified 09/04/18 12:27 [From Augmentin] Remember Home Meds: Home Meds Calcium Citrate - Vit D Caplet 1 tab PO DAILY 03/28/13 [History] Carboxymethylcellulose 2 drop EYEBOTH QID PRN 03/28/13 [History] Omeprazole 20 mg PO DAILY 03/28/13 [History] Ferrous Gluconate 324 mg PO BID 07/08/13 [History] PARoxetine [Paxil] 10 mg PO DAILY 07/08/13 [History] oxyCODONE HCl/Acetaminophen [Percocet 5-325 mg Tablet] 1 tab PO TID PRN [History] Furosemide [Lasix] 40 mg PO DAILY #30 tablet 07/16/13 [Rx] metOLazone [Metolazone] 2.5 mg PO ASDIRECTED 09/10/14 [History] Aspirin [Low Dose Aspirin EC] 81 mg PO DAILY 11/04/14 [History] Potassium Chloride 40 meq PO TID 11/04/14 [History] Acetaminophen [Tylenol] 325 mg PO Q4H PRN 05/31/17 [History] Metoprolol Succinate 50 mg PO DAILY 05/31/17 [History] Nitroglycerin [Nitrostat] 0.4 mg SL ASDIRECTED PRN 05/31/17 [History] Past Medical History HEENT History: Reports: Impaired Vision, Other (See Below) Other HEENT History: wears glasses Cardiovascular History: Reports: Afib, Heart Failure, Hypertension, PVD, SOB on Exertion Respiratory History: Reports: SOB, Other (See Below) Other Respiratory History: oxygen dependent Gastrointestinal History: Reports: GERD Genitourinary History: Reports: Urinary Incontinence [employer]OR WORKER History: Reports: 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 Uterine Bleeding Musculoskeletal History: Reports: Arthritis, Back Pain, Chronic, Other (See Below) Other Musculoskeletal History: arthritis in lower back, knees, ankles and heels , left shoulder Neurological History: Reports: None Psychiatric History: Reports: Anxiety, Bipolar, Depression Other Psychiatric History: help balance hormones after hysterectomy Endocrine/Metabolic History: Reports: None Hematologic History: Reports: Anemia Immunologic History: Reports: None Oncologic (Cancer) History: Reports: Uterine Dermatologic History: Reports: Other (See Below) Other Dermatologic History: pediculosis capitis - Infectious Disease History Infectious Disease History: Reports: Chicken Pox, Mumps - Past Surgical History Other GI Surgeries/Procedures: 1984 cholecystectomy Other Female Surgeries/Procedures: 2012 hysterectomy Other Oncologic Surgeries/Procedures: hysterectomy Social & Family History - Family History Family Medical History: Noncontributory - Caffeine Use Caffeine Use: Reports: Coffee, Tea - Living Situation & Occupation Living situation: Reports: with Family Occupation: Disabled ED ROS GENERAL - Review of Systems Review Of Systems: Unable To Obtain Reason Not Obtained: BiPAP, resp. distress ED EXAM, GENERAL - Physical Exam Exam: See Below Exam Limited By: Respiratory Distress General Appearance: Alert, Anxious, Moderate Distress, Obese Eye Exam: Bilateral Eye: EOMI, Normal Inspection, PERRL Ears: Normal External Exam, Hearing Grossly Normal Nose: Normal Inspection, Normal Mucosa, No Blood Throat/Mouth: Normal Inspection, Normal Lips, Normal Teeth, Normal Gums, Normal Oropharynx, Normal Voice, No Airway Compromise Head: Atraumatic, Normocephalic Neck: Normal Inspection, Supple, Non-Tender, Full Range of Motion. No: Lymphadenopathy (L), Lymphadenopathy (R) Respiratory/Chest: Chest Non-Tender, Decreased Breath Sounds, Crackles, Rales, Rhonchi, Wheezing. No: Stridor Cardiovascular: Normal Peripheral Pulses, Tachycardia, Irregularly Irregular GI/Abdominal: Normal Bowel Sounds, Soft, Non-Tender, No Distention Extremities: Normal Range of Motion, Non-Tender, Normal Capillary Refill, Other (Wound at left lower leg with dressing in place, not removed for exam.) Neurological: Alert, No Motor/Sensory Deficits, Confused Psychiatric: Anxious Skin Exam: Warm, Dry, Normal Color EKG INTERPRETATION EKG Date: 07/25/19 Rhythm: A-Fib Rate (Beats/Min): 105 (105 to 160HR on current telemetry) [place]: Normal (borderline RVH) P-Wave: Absent QRS: Normal ST-T: Normal QT: Normal Comparison: NA - No Prior EKG Course - Vital Signs Last Recorded V/S: Last Vital Signs Temp Pulse 94 07/25/19 12:12 Resp BP Pulse Ox - Orders/Labs/Meds Orders: Active Orders 24 hr Category Date Time Status EKG 12 Lead [EKG Documentation Completion] [RC] STAT Care 07/25/19 11:27 Active Peripheral IV Care [RC] . DIRECTED Care 07/25/19 11:28 Active RT BiPAP/CPAP [RC] ASDIRECTED Care 07/25/19 11:45 Active ABG [BLOOD GAS ARTERIAL] [BG] Stat Lab 07/25/19 13:56 Ordered UA RFX MARK AND CULT IF INDIC [URIN] Stat Lab 07/25/19 11:28 Ordered Diltiazem 125 mg Med 07/25/19 11:45 Active Sodium Chloride 0.9% [Normal Saline] 100 ml IV TITRATE Norepinephrine [Levophed] 4 mg Med 07/25/19 12:00 Active Dextrose 5% in Water 246 ml IV TITRATE Sodium Chloride 0.9% [Saline Flush] Med 07/25/19 11:28 Active 10 ml FLUSH ASDIRECTED PRN VANCOmycin/Water for INJ (PEG) [VANCOmycin 1.5 GM/300 Med 07/25/19 12:41 Active ML Premix] 1.5 gm Premix Bag 1 bag IV ONETIME Peripheral IV Insertion Adult [OM.PC] Stat Oth 07/25/19 11:27 Ordered Medication Orders Diltiazem HCl 125 mg/ Sodium (Chloride) 125 mls @ 10 mls/hr IV TITRATE BEBE; Protocol Norepinephrine Bitartrate 4 mg (/ Dextrose/Water) 250 mls @ 22.5 mls/hr IV TITRATE BEBE; Protocol Last Admin: 07/25/19 12:06 Dose: 6 mcg/min, 22.5 mls/hr Vancomycin HCl 1.5 gm/ Premix 300 mls @ 200 mls/hr IV ONETIME ONE Stop: 07/25/19 14:10 Last Admin: 07/25/19 13:29 Dose: 200 mls/hr Sodium Chloride (Saline Flush) 10 ml FLUSH ASDIRECTED PRN PRN Reason: Keep Vein Open Last Admin: 07/25/19 12:02 Dose: 10 ml Labs: Laboratory Tests 07/25/19 07/25/19 07/25/19 Range/Units 11:38 11:38 11:38 WBC 14.6 H (5.0-10.0) 10^3/uL RBC 6.98 H (4.2-5.4) 10^6/uL Hgb 19.8 H D (12.0-16.0) g/dL Hct 59.1 H (37.0-47.0) % MCV 84.7 D (80-100) fL MCH 28.4 (27.0-34.0) pg MCHC 33.5 (33.0-35.0) g/dL Plt Count 34 L* D (150-450) 10^3/uL Neut % (Auto) 73.7 (42.2-75.2) % Lymph % (Auto) 12.2 L (20.5-50.1) % Stevens % (Auto) 13.5 H (2-8) % Eos % (Auto) 0.3 L (1.0-3.0) % Baso % (Auto) 0.3 (0.0-1.0) % Add Manual Diff Yes Neutrophils % (Manual) 65 (42-75) % Band Neutrophils % 5 % Lymphocytes % (Manual) 17 L (20-50) % Monocytes % (Manual) 13 H (2-8) % PT 14.4 H D (9.0-12.0) SEC INR 1.5 H (0.9-1.2) APTT 34.1 H (22.0-34.0) SEC Sodium 132 L (136-145) mmol/L Potassium 4.5 (3.5-5.1) mmol/L Chloride 93 L (98-107) mmol/L Carbon Dioxide 28 (21-32) mmol/L Anion Gap 15.5 H (7-13) mEq/L BUN 56 H (7-18) mg/dL Creatinine 4.34 H (0.55-1.02) mg/dL Est Cr Clr Drug Dosing TNP Estimated GFR (MDRD) 10 BUN/Creatinine Ratio 12.9 (No establ ref range) Glucose 123 H (74-99) mg/dL Lactic Acid (0.4-2.0) mmol/L Calcium 9.2 (8.5-10.1) mg/dL Magnesium 2.1 (1.8-2.4) mg/dL Total Bilirubin 0.8 (0.2-1.0) mg/dL AST 36 (15-37) U/L ALT 27 (14-59) U/L Alkaline Phosphatase 66 (46-116) U/L Troponin I 0.043 (0.000-0.056) ng/mL B-Natriuretic Peptide 56 (0-100) pg/ml Total Protein 6.9 (6.4-8.2) g/dL Albumin 2.3 L (3.4-5.0) g/dL Globulin 4.6 Albumin/Globulin Ratio 0.50 TSH, Ultra Sensitive 0.93 (0.36-3.74) uIU/mL /07/08 Range/Units 11:38 WBC (5.0-10.0) 10^3/uL RBC (4.2-5.4) 10^6/uL Hgb (12.0-16.0) g/dL Hct (37.0-47.0) % MCV (80-100) fL MCH (27.0-34.0) pg MCHC (33.0-35.0) g/dL Plt Count (150-450) 10^3/uL Neut % (Auto) (42.2-75.2) % Lymph % (Auto) (20.5-50.1) % Stevens % (Auto) (2-8) % Eos % (Auto) (1.0-3.0) % Baso % (Auto) (0.0-1.0) % Add Manual Diff Neutrophils % (Manual) (42-75) % Band Neutrophils % % Lymphocytes % (Manual) (20-50) % Monocytes % (Manual) (2-8) % PT (9.0-12.0) SEC INR (0.9-1.2) APTT (22.0-34.0) SEC Sodium (136-145) mmol/L Potassium (3.5-5.1) mmol/L Chloride (98-107) mmol/L Carbon Dioxide (21-32) mmol/L Anion Gap (7-13) mEq/L BUN (7-18) mg/dL Creatinine (0.55-1.02) mg/dL Est Cr Clr Drug Dosing Estimated GFR (MDRD) BUN/Creatinine Ratio (No establ ref range) Glucose (74-99) mg/dL Lactic Acid 4.8 H* (0.4-2.0) mmol/L Calcium (8.5-10.1) mg/dL Magnesium (1.8-2.4) mg/dL Total Bilirubin (0.2-1.0) mg/dL AST (15-37) U/L ALT (14-59) U/L Alkaline Phosphatase (46-116) U/L Troponin I (0.000-0.056) ng/mL B-Natriuretic Peptide (0-100) pg/ml Total Protein (6.4-8.2) g/dL Albumin (3.4-5.0) g/dL Globulin Albumin/Globulin Ratio TSH, Ultra Sensitive (0.36-3.74) uIU/mL Meds: Medications Generic Name Dose Route Start Last Admin Trade Name Freq PRN Reason Stop Dose Admin Diltiazem HCl 125 mg/ Sodium 125 mls @ 10 mls/hr 07/25/19 11:45 Chloride IV TITRATE BEBE Protocol 10 MG/HR Norepinephrine Bitartrate 4 mg 250 mls @ 22.5 mls/hr 07/25/19 12:00 07/25/19 12:06 / Dextrose/Water IV 6 mcg/min TITRATE BEBE 22.5 mls/hr Administration Protocol 6 MCG/MIN Vancomycin HCl 1.5 gm/ Premix 300 mls @ 200 mls/hr 07/25/19 12:41 07/25/19 13 :29 IV 07/25/19 14:10 200 mls/hr ONETIME ONE Administration Sodium Chloride 10 ml 07/25/19 11:28 07/25/19 12:02 Saline Flush FLUSH 10 ml ASDIRECTED PRN Administration Keep Vein Open Discontinued Medications Generic Name Dose Route Start Last Admin Trade Name Freq PRN Reason Stop Dose Admin Digoxin 500 mcg 07/25/19 11:38 07/25/19 12:12 Lanoxin IVPUSH 07/25/19 11:39 500 mcg ONETIME ONE Administration Diltiazem HCl 20 mg 07/25/19 11:29 07/25/19 12:11 Diltiazem IVPUSH 07/25/19 11:30 15 mg ONETIME ONE Administration Diphenhydramine HCl 25 mg 07/25/19 12:40 07/25/19 12:53 Benadryl IVPUSH 07/25/19 12:41 25 mg ONETIME ONE Administration Furosemide 80 mg 07/25/19 11:59 07/25/19 12:15 Lasix IVPUSH 07/25/19 12:00 80 mg NOW ONE Administration Levofloxacin/Dextrose 500 mg/ 100 mls @ 100 mls/hr 07/25/19 12:20 07/25/19 12 :30 Premix IV 07/25/19 13:19 100 mls/hr ONETIME ONE Administration Methylprednisolone Sodium Succinate 125 mg 07/25/19 12:40 07/25/19 12:50 Solu-Medrol IVPUSH 07/25/19 12:41 125 mg ONETIME ONE Administration - Radiology Interpretation Free Text/Narrative:: XR Chest: Acute cardiovascular decompensation, florid pulmonary venous congestion with cephalization of vasc. flow per Rad. report. XR Chest: ET tube 2cm above noman. - Re-Assessments/Exams Free Text/Narrative Re-Assessment/Exam: 07/25/19 12:30 Pt developed redness with urticaria to Rt arm shortly after initiation of Levaquin. Allergic reaction resolved with Benadryl 25mg IVP and Solu-Medrol 125mg IVP. Levaquin was discontinued. Vancomycin 1500mg IV was then initiated. 07/25/19 13:42 Pt not tolerating BiPAP, becoming restless and agitated. Elected to secure airway by intubating pt prior to air transfer for safety of pt and crew. Pt's daughter arrives and confirms pt is a "Full Code" and agrees with intubation. CHAIN MAKER MACHINE called to intubate due to multiple critical pt's in my care at this time. See CHAIN MAKER MACHINE note for intubation details. Departure - Departure Time of Disposition: 13:24 Disposition: DC/Tfer to [facility] 02 Reason for Transfer *Q: Other Condition: Critical Clinical Impression: Sepsis associated hypotension, Atrial fibrillation with rapid ventricular response Pneumonia Qualifiers: Pneumonia type: due to unspecified organism Laterality: bilateral Lung location : unspecified part of lung Qualified Code(s): J18.9 - Pneumonia, unspecified organism Acute respiratory failure Qualifiers: Respiratory failure complication: hypoxia and hypercapnia Qualified Code(s): J96.01 - Acute respiratory failure with hypoxia Acute kidney failure Qualifiers: Acute renal failure type: unspecified Qualified Code(s): N17.9 - Acute kidney failure, unspecified Referrals: PCP,Unobtain [Primary Care Provider] - Forms: ED Department Discharge, Interfacility Transfer [facility] Sepsis Event Note - Focused Exam Vital Signs: Vital Signs Pulse 07/25/19 12:12 94 Date Exam was Performed: 07/25/19 Time Exam was Performed: 14:01 - My Orders Last 24 Hours: My Active Orders 07/25/19 11:27 EKG 12 Lead [EKG Documentation Completion] [RC] STAT Peripheral IV Insertion Adult [OM.PC] Stat 07/25/19 11:28 Peripheral IV Care [RC] . DIRECTED UA RFX MARK AND CULT IF INDIC [URIN] Stat Sodium Chloride 0.9% [Saline Flush] 10 ml FLUSH ASDIRECTED PRN 07/25/19 11:45 RT BiPAP/CPAP [RC] ASDIRECTED Diltiazem 125 mg Sodium Chloride 0.9% [Normal Saline] 100 ml IV TITRATE 07/25/19 12:00 Norepinephrine [Levophed] 4 mg Dextrose 5% in Water 246 ml IV TITRATE 07/25/19 12:41 VANCOmycin/Water for INJ (PEG) [VANCOmycin 1.5 GM/300 ML Premix] 1.5 gm Premix Bag 1 bag IV ONETIME 07/25/19 13:56 ABG [BLOOD GAS ARTERIAL] [BG] Stat - Assessment/Plan Last 24 Hours: My Active Orders 07/25/19 11:27 EKG 12 Lead [EKG Documentation Completion] [RC] STAT Peripheral IV Insertion Adult [OM.PC] Stat 07/25/19 11:28 Peripheral IV Care [RC] . DIRECTED UA RFX MARK AND CULT IF INDIC [URIN] Stat Sodium Chloride 0.9% [Saline Flush] 10 ml FLUSH ASDIRECTED PRN 07/25/19 11:45 RT BiPAP/CPAP [RC] ASDIRECTED Diltiazem 125 mg Sodium Chloride 0.9% [Normal Saline] 100 ml IV TITRATE 07/25/19 12:00 Norepinephrine [Levophed] 4 mg Dextrose 5% in Water 246 ml IV TITRATE 07/25/19 12:41 VANCOmycin/Water for INJ (PEG) [VANCOmycin 1.5 GM/300 ML Premix] 1.5 gm Premix Bag 1 bag IV ONETIME 07/25/19 13:56 ABG [BLOOD GAS ARTERIAL] [BG] Stat
[2019-07-25] MEDS ORDERED: Sodium Chloride 0.9% 10 ML Syringe FLUSH PRN (11:28)
[2019-07-25] MEDS ORDERED: Diltiazem 25 MG/5 ML SDV IVPUSH ONE (11:29)
[2019-07-25] MEDS ORDERED: Digoxin 500 MCG/2 ML Amp IVPUSH ONE (11:38)
[2019-07-25] MEDS ORDERED: Diltiazem 125 MG in Sodium Chloride 0.9% 100 ML IV SCH (11:45)
[2019-07-25] MEDS ORDERED: Furosemide 40 MG/4 ML VIAL IVPUSH ONE (11:59)
[2019-07-25] MEDS ORDERED: Norepinephrine 4 MG in Dextrose 5% in Water 246 ML IV SCH ×2 (12:00)
--- NOTE | 2019-07-25 12:09 | CR ---
EXAMINATION: Chest 1V Frontal SEX: Female AGE: 78 years CLINICAL HISTORY: 78-year-old female with atrial fibrillation complaining of chest pain and SOB. Comparison chest film 08 April 2019. Interpretation: Abnormal. 1. Florid pulmonary venous congestion and cephalization of vascular flow. 2. Fluid minor fissure on the right and blunting the costophrenic sulci (silhouetting the left hemidiaphragm) new since to April 10, 2019 comparison AP portable film. 3. Chronic cardiomegaly. 4. No new lung mass, hilar lymphadenopathy or focal lobar pneumonia. CONCLUSION: Cardiovascular decompensation (CHF).
[2019-07-25 12:13] VITALS: PULSE 94
[2019-07-25 12:15] LABS: PTT,PARTIAL THROMBOPLSTIN TIME 34.1 SEC (22.0-34.0)
[2019-07-25 12:16] LABS: ANION GAP 15.5 mEq/L (7-13); CHLORIDE,CL 93 mmol/L (98-107); SODIUM,NA 132 mmol/L (136-145)
[2019-07-25] MEDS ORDERED: Levofloxacin/Dextrose 5%-Water 500 MG in Premix Bag 1 BAG IV ONE (12:20)
[2019-07-25] MEDS ORDERED: methylPREDNISolone Sodium Succinate 125 MG/2 ML SDV IVPUSH ONE (12:40)
[2019-07-25] MEDS ORDERED: diphenhydrAMINE 50 MG/ML SDV IVPUSH ONE (12:40)
--- NOTE | 2019-07-25 13:38 | PCM.PRNOTE ---
- Free Text/Narrative Note: ER Intubation. Called to ER for patient in extremis. Hypotensive on Levophed. Hypoxemic and agitated failing CPAP trial. 30mg lidocaine. 100mg propofol 100mg Sux. DVL times 1 with Glidescope. Cords clean. #8.0 OETT passed through cords under direct visualization. BBS. + end tidal carbon dioxide. Secured at 21cm at lip. PCXR ordered. 18 F NGT placed in Right nare. Propofol gtt set up by nursing staff. Will titrate to sedation based on hemodynamics.
--- NOTE | 2019-07-25 13:49 | CR ---
EXAMINATION: Chest 1V Frontal SEX: Female AGE: 78 years CLINICAL HISTORY: 78-year-old female with cardiovascular decompensation (atrial fibrillation and CHF). tube placement INTERPRETATION: Satisfactory midline endotracheal tube placement with the distal tip positioned 4 cm proximal to the tracheobronchial bifurcation (Janay). Cardiomegaly with large pulmonary venous congestion, cephalization of flow and pleural effusions.
[2019-07-25 14:07] LABS: ALLEN TEST pos; O2 DELIVERY DEVICE BIPAP
[2019-07-26 13:37] LABS: PCO2 ARTERIAL 38 mmHg (35-45); PO2 ARTERIAL 71 mmHg (70-100)
[2019-07-26 13:38] LABS: BASE EXCESS ARTERIAL -7 mmol/L ((-2)-(+3)); BICARBONATE,ARTERIAL 19.3 mmol/L (22-26); O2 SATURATION ARTERIAL 93 % (95-100)
== END 2019-07-25 14:13 ==
LOC: DL.ED 11:26
DX: A41.9 Sepsis, unspecified organism (principal); R65.20 Severe sepsis without septic shock; N17.9 Acute kidney failure, unspecified; J96.01 Acute respiratory failure with hypoxia; J18.9 Pneumonia, unspecified organism; I95.9 Hypotension, unspecified; I48.91 Unspecified atrial fibrillation; F31.9 Bipolar disorder, unspecified; F41.9 Anxiety disorder, unspecified; I11.0 Hypertensive heart disease with heart failure; I50.9 Heart failure, unspecified; K21.9 Gastro-esophageal reflux disease without esophagitis; M19.90 Unspecified osteoarthritis, unspecified site; Z79.82 Long term (current) use of aspirin; Z91.09 Other allergy status, other than to drugs and biological substances; Z88.8 Allergy status to other drugs, medicaments and biological substances; Z88.0 Allergy status to penicillin; Z88.1 Allergy status to other antibiotic agents; Z79.899 Other long term (current) drug therapy; Z99.81 Dependence on supplemental oxygen
CPT/HCPCS: 36415; 36600; 71045; 80053; 82803; 83605; 83735; 83880; 84443; 84484; 85025; 85610; 85730; 93005; 94660; 96365; 96366; 96368; 96375; 99285; J1160; J1200; J1940; J1956; J2930; J3370; J3490; J7060; 93010; 99284; J0330; J2001; J2704